=== PATIENT | female | born 1985 | race Hispanic/Latino ===

== ENCOUNTER 2021-08-16 13:57 | Emergency (ER) | payer BC ==
[2021-08-16] MEDS ORDERED: ONDANSETRON 4 MG/2 ML VIAL ONE (14:54)
[2021-08-16] MEDS ORDERED: KETOROLAC 30 MG/ML INJ ONE (14:54)
[2021-08-16 15:24] LABS: Absolute Lymphocytes (CBC) 2.2 K/uL (0.7-4.9); Hematocrit 43.9 % (36.0-45.0); Lymphocytes % 30.6 % (15.3-44.8); MPV 8.7 fL (7.6-11.3); RBC Red Blood Cell Count 5.01 M/uL (3.86-4.86)
[2021-08-16 15:31] LABS: Urine Blood 3+ (Negative); Urine Glucose Negative (Negative); Urine Protein 3+ (Negative); Urine Specific Gravity >=1.030 (1.005-1.030)
[2021-08-16] MEDS ORDERED: MORPHINE 4 MG/ML SYR ONE (15:37)
[2021-08-16 15:41] LABS: ALT/SGPT 44 U/L (12-78); AST/SGOT 25 U/L (15-37); Albumin 4.1 g/dL (3.4-5.0); Alkaline Phosphatase 99 U/L (45-117); BUN Blood Urea Nitrogen 16 mg/dL (7-18); Bicarbonate 23 mmol/L (21-32); Bilirubin Direct < 0.1 mg/dL (0-0.2); Bilirubin Total 0.3 mg/dL (0.2-1.0); Glucose Level 135 mg/dL (74-106); Lipase 95 U/L (73-393); Potassium 3.8 mmol/L (3.5-5.1); Protein, Total 8.7 g/dL (6.4-8.2); Sodium Level 140 mmol/L (136-145)
[2021-08-16 15:54] LABS: Urine Specific Gravity/Preg >1.030 (1.005-1.030)
--- NOTE | 2021-08-16 16:07 | RAD REPORT ---
EXAM DESCRIPTION: CT - Stone Protocol - 08/16/2021 3:49 pm CLINICAL HISTORY: Flank pain. history of stones;Abd pain COMPARISON: No comparisons TECHNIQUE: Axial images were obtained without oral or IV contrast. Lack of contrast limits solid org an and vascular assessment. The [id number]-[id number] spans the entirety of the system partially obscuring uppermost abdomen and lung bases. Coronal reformatted images were obtained and reviewed. All CT scans are performed using dose optimization technique as appropriate and may include automated exposure control or mA/KV adjustment according to patient size. FINDINGS: The lower lung haas are clear. Imaged portions of the liver and spleen show no suspicious findings on non-contrast imaging. The panc reas and adrenal glands are normal. No pathologic lymphadenopathy in the abdomen or pelvis. Small caliceal stones are present in both kidneys without hydronephrosis, largest on the right measur ing 5 mm. No bowel obstruction, free air, free fluid or abscess. Normal appendix noted.A pelvic mass is present measuring 7.3 x 6.1 cm it is unclear if this mass emanates from the uterus or left ovary. No significant bony abnormality. IMPRESSION: Small stones in both kidneys without hydronephrosis. 7 cm pelvic mass is noted. Recommend pelvic ultrasound followup.
[2021-08-16] MEDS ORDERED: HYDROMORPHONE HCL 1 MG/ML INJ ONE (16:49)
--- NOTE | 2021-08-16 17:04 | RAD REPORT ---
EXAM DESCRIPTION: US - Transvaginal Study Probe - 08/16/2021 4:50 pm CLINICAL HISTORY: r/o torsion;Abd pain Pelvic pain. COMPARISON: No comparisons FINDINGS: The uterus is normal in size, shape and echotexture. The uterus measures 9.9 x 6.1 x 4.1 c m. The endometrial stripe measures 12 mm, normal. The right ovary measures 3.1 x 1.9 cm. The left ovary appears enlarged and appears to contain the omer id and cystic mass. The size of the mass is approximately 6.2 x 5.9 cm. Normal Doppler blood flow was demonstrated to both ovaries. No significant pelvic ascites. IMPRESSION: A solid and cystic mass lesion measuring 6.2 x 5.9 cm suspected involving the left ovary .An ovarian neoplasm is possible. Recommend nonemergent MRI female pelvis protocol. No ovarian torsion seen.
--- NOTE | 2021-08-16 17:45 | ER ---
Nurse's Notes [facility] Name: Elza Rogers Age: 36 yrs Sex: Female : 1985 Arrival Date: 08/16/2021 Time: 14:05 Bed 18 Private MD: Diagnosis: Left lower quadrant abdominal swelling, mass and lump;Lower abdominal pain, unspecified-intractable Presentation: 08/16 14:15 Chief complaint: Patient states: Abdominal pain 10 of 10, left lower Quadrant x 3 weeks sl2 - pain worst in severity today thus presented to ED. Denies fever, nausea or vomiting, report history of ovarian cysts. Currently menstruating. 14:15 Coronavirus screen: Vaccine status: Patient reports receiving the 2nd dose of the covid sl2 vaccine. Ebola Screen: Patient negative for fever greater than or equal to 101.5 degrees Fahrenheit, and additional compatible Ebola Virus Disease symptoms Patient denies exposure to infectious person. Patient denies travel to an Ebola-affected area in the 21 days before illness onset. No symptoms or risks identified at this time. Initial Sepsis Screen: Does the patient meet any 2 criteria? No. Patient's initial sepsis screen is negative. Does the patient have a suspected source of infection? No. Patient's initial sepsis screen is negative. Risk Assessment: Do you want to hurt yourself or someone else? Patient reports no desire to harm self or others. Onset of symptoms. 14:15 Method Of Arrival: Ambulatory sl2 14:15 Acuity: PATRICA 2 sl2 Triage Assessment: 14:46 General: Appears uncomfortable, well groomed, well developed, Behavior is calm, sl2 cooperative, appropriate for age, quiet, Reports Severe LLQ abdominal pain. Pain: Complains of pain in abdomen. Left lower quadrant Pain does not radiate. Pain currently is 10 out of 10 on a pain scale. at worst was 10 out of 10 on a pain scale. level that patient reports is acceptable is 2 out of 10 on a pain scale. Quality of pain is described as aching, sharp, Pain began 3 weeks ago Is continuous, Alleviated by nothing. Aggravated by increased activity, Noted to be grimacing, quiet/stoic, resistant to movement. EENT: No deficits noted. No signs and/or symptoms were reported regarding the EENT system. Neuro: Level of Consciousness is awake, alert, obeys commands, Oriented to person, place, time, situation, Appropriate for age Bronc Buster are equal bilaterally Moves all extremities. Full function Gait is steady, Speech is normal, Facial symmetry appears normal. Neuro: No deficits noted. Cardiovascular: No deficits noted. Respiratory: No deficits noted. Reports Airway is patent Trachea midline Respiratory effort is even, unlabored, Respiratory pattern is regular, symmetrical, Breath sounds are clear bilaterally. GI: Reports lower abdominal pain, Patient currently denies diarrhea. : No deficits noted. No signs and/or symptoms were reported regarding the genitourinary system. Derm: No deficits noted. No signs and/or symptoms reported regarding the dermatologic system. Musculoskeletal: No deficits noted. No signs and/or symptoms reported regarding the musculoskeletal system. CYCLE COUNTER: 14:46 LMP 08/16/2021 sl2 Historical: - Allergies: 14:46 No Known Allergies; sl2 - Immunization history:: Adult Immunizations up to date, Client reports receiving the 2nd dose of the Covid vaccine. - Social history:: Smoking status: Patient denies any tobacco usage or history of. Screenin:55 Abuse screen: Denies threats or abuse. Nutritional screening: No deficits noted. ss Tuberculosis screening: No symptoms or risk factors identified. Fall Risk None identified. No fall in past 12 months (0 pts). No secondary diagnosis (0 pts). IV access (20 points). Ambulatory Aid- None/Bed Rest/Nurse Assist (0 pts). Gait- Normal/Bed Rest/Wheelchair (0 pts) Mental Status- Oriented to own ability (0 pts). Total Carl Fall Scale indicates No Risk (0-24 pts). Assessment: 14:55 General: Appears uncomfortable, obese, well groomed, well developed, Behavior is ss cooperative, appropriate for age. 14:55 Pain: Complains of pain in Left Lower Quadrant - Abdomen Pain does not radiate. Pain ss currently is 10 out of 10 on a pain scale. at worst was 10 out of 10 on a pain scale. level that patient reports is acceptable is 2 out of 10 on a pain scale. Quality of pain is described as aching, crampy, sharp, shooting, Pain began 3 weeks ago Is continuous, Alleviated by nothing. Aggravated by increased activity, repositioning, Noted to be grimacing, resistant to movement. Neuro: No deficits noted. Level of Consciousness is awake, alert, obeys commands, Oriented to person, place, time, situation, Appropriate for age Bronc Buster are equal bilaterally Moves all extremities. Full function Gait is steady, Speech is normal, Facial symmetry appears normal. Cardiovascular: No deficits noted. Reports. Respiratory: No deficits noted. Airway is patent Trachea midline Respiratory effort is even, unlabored, Respiratory pattern is regular, symmetrical, Breath sounds are clear bilaterally. GI: Bowel sounds present X 4 quads. Abd is soft and non tender X 4 quads. : No deficits noted. EENT: No deficits noted. Derm: No deficits noted. Musculoskeletal: No deficits noted. 18:10 Pain: Pain currently is 6 out of 10 on a pain scale. sl2 19:37 Reassessment: Patient appears in no apparent distress at this time. Resting in bed sl2 talking on cell phone; reports left lower abdominal pain decreased to 2/10 on pain scale; # 20 g saline lock intact right AC with no s/sx's of infiltration/infection noted of site; afebrile. Patient states feeling better. General: Appears in no apparent distress. Behavior is calm, cooperative. Neuro: No deficits noted. Level of Consciousness is awake, alert, obeys commands, Oriented to person, place, time, situation. Respiratory: No deficits noted. Airway is patent. GI: Reports lower abdominal pain, decreasing. 20:30 Reassessment: Report telephoned to Lizzy Hand RN of [facility]; pt cc4 informed of transfer via ground ambulance to [facility] with v/u \T\ signing consent. Patient states feeling better. 21:00 Reassessment: Patient appears in no apparent distress at this time. [facility] cc4 here with report given \T\ transported to [facility] via stretcher per ground ambulance. Patient states feeling better. Vital Signs: 14:15 BP 110 / 69; Pulse 82; Resp 22; Temp 98.4; Pulse Ox 99% on R/A; Weight 97.52 kg; Height sl2 5 ft. 6 in. (167.64 cm); 15:30 BP 135 / 78; Pulse 85; Resp 18; Temp 98.6; Pulse Ox 100% on R/A; ss 16:00 BP 134 / 84; Pulse 86; Resp 18; Pulse Ox 100% on R/A; sl2 17:00 BP 142 / 86; Pulse 85; Resp 18; Temp 98.4; Pulse Ox 97% on R/A; sl2 17:30 BP 143 / 90; Pulse 75; Resp 18; Temp 98.4; Pulse Ox 99% on R/A; sl2 18:00 BP 138 / 85; Pulse 80; Resp 18; Temp 98.2; Pulse Ox 99% on R/A; sl2 19:00 BP 133 / 85; Pulse 88; Resp 18; Temp 98.4; Pulse Ox 100% ; sl2 19:37 BP 145 / 94; Pulse 78; Resp 20; Temp 98.1; Pulse Ox 100% on R/A; sl2 20:30 BP 131 / 92; Pulse 73; Resp 20; Temp 98.1(O); Pulse Ox 99.0% on R/A; cc4 14:15 Body Mass Index 34.70 (97.52 kg, 167.64 cm) sl2 ED Course: 14:05 Patient arrived in ED. mr 14:15 Ken Palomino PA is PHCP. jr8 14:15 Elias Richards MD is Attending Physician. jr8 14:15 Rosamaria Echavarria MD is Attending Physician. jr8 14:20 Inserted saline lock: 20 gauge in right antecubital area, using aseptic technique. ss 14:41 Marianela Bro, RN is Primary Nurse. sl2 14:46 Triage completed. sl2 14:46 Arm band placed on left wrist. sl2 14:55 Patient has correct armband on for positive identification. Placed in gown. Bed in low ss position. Call light in reach. Side rails up X2. 14:55 No provider procedures requiring assistance completed. ss 15:[address] via wheelchair. ss 15:48 CT Stone Protocol In Process Unspecified. EDMS 15:[address] Patient moved back from [address]. ss 16:50 US Transvaginal Study (Probe) In Process Unspecified. EDMS 17:22 PHCP role handed off by Ken Palomino PA jr8 17:22 Travon Parra PA is PHCP. jr8 17:[address] Arlene Pop. [phone]. bd 18:30 initiated transfer to [facility]. bd 20:03 Updated Basil at [facility] with pt xu resutls. tt3 20:14 Dani Serna with [facility] gave admin approval. The pt is going to [address] to room 2636. The accepting physician is Dr. Eldridge. Nurse to call report to . Face sheet, covid result, and MOT to be faxed to per Dani's request. 21:00 Patient transferred, IV remains in place. cc4 Administered Medications: 14:57 Drug: Ketorolac 15 mg Route: IVP; Site: right antecubital; sl2 15:30 Follow up: Response: No adverse reaction; No change in condition ss 15:00 Drug: Zofran (Ondansetron) 4 mg Route: IVP; Site: right antecubital; sl2 15:30 Follow up: Response: No adverse reaction; No change in condition ss 16:58 Follow up: Response: No adverse reaction sl2 15:44 Drug: morphine 4 mg Route: IVP; Site: right antecubital; ss 16:10 Follow up: Response: No adverse reaction; Pain is decreased sl2 16:55 Drug: Dilaudid (HYDROmorphone) 1 mg Route: IVP; Site: right antecubital; sl2 18:08 Follow up: Response: No adverse reaction; Pain is decreased sl2 Outcome: 17:44 ER care complete, transfer ordered by . cp 21:00 Transferred by ground EMS [facility] Transfer form completed. cc4 21:00 Condition: stable 21:00 Instructed on the need for transfer, Demonstrated understanding of instructions, follow-up care. 21:07 Patient left the ED. cc4 Signatures: Dispatcher [employer] EDMS Karly Nieto Dean, Anne mr Harika Cristina, LOYD RN Ken Palomino PA PA jr8 Travon Parra PA PA cp Trim, Tyler tt3 India Patel RN RN cc4 Marianela Bro RN RN sl2 Corrections: (The following items were deleted from the chart) 15:53 15:52 Patient moved back from [facility]. ss ss
--- NOTE | 2021-08-16 17:45 | EDPHYS ---
Physician Documentation [facility] Name: Elza Rogers Age: 36 yrs Sex: Female : 1985 Arrival Date: 08/16/2021 Time: 14:05 Bed 18 Private MD: ED Physician Rosamaria Echavarria HPI: 08/16 16:00 This 36 yrs old Female presents to ER via Ambulatory with complaints of jr8 Abdominal Pain. 16:00 This is a 36-year-old female who presented to the emergency room with left lower cp quadrant abdominal. Patient recently had delivery about 3 weeks ago. Started to have her menstrual cycle a couple days ago and is now having intense left lower quadrant pain. Patient stated that she has a history of ovarian cysts and during the section her OB stated that there were more cysts on her ovaries than they saw the last time. Patient also has a history of rupture of cysts in the past also. Concerned that it may have happened again. Denies any nausea, vomiting, diarrhea, fevers. TOOL [employer] LEVEL FIVE: 14:46 LMP 08/16/2021 sl2 Historical: - Allergies: 14:46 No Known Allergies; sl2 - Immunization history:: Adult Immunizations up to date, Client reports receiving the 2nd dose of the Covid vaccine. - Social history:: Smoking status: Patient denies any tobacco usage or history of. ROS: 16:00 Eyes: Negative for injury, pain, redness, and discharge, ENT: Negative for injury, jr8 pain, and discharge, Neck: Negative for injury, pain, and swelling, Cardiovascular: Negative for chest pain, palpitations, and edema, Respiratory: Negative for shortness of breath, cough, wheezing, and pleuritic chest pain, Back: Negative for injury and pain, MS/Extremity: Negative for injury and deformity, Skin: Negative for injury, rash, and discoloration, Neuro: Negative for headache, weakness, numbness, tingling, and seizure. 16:00 Abdomen/GI: Positive for abdominal pain, Negative for nausea, vomiting, and diarrhea. Exam: 16:00 Cardiovascular: Regular rate and rhythm with a normal S1 and S2. No gallops, murmurs, jr8 or rubs. Normal PMI, no JVD. No pulse deficits. Respiratory: Lungs have equal breath sounds bilaterally, clear to auscultation and percussion. No rales, rhonchi or wheezes noted. No increased work of breathing, no retractions or nasal flaring. Back: No spinal tenderness. No costovertebral tenderness. Full range of motion. Skin: Warm, dry with normal turgor. Normal color with no rashes, no lesions, and no evidence of cellulitis. MS/ Extremity: Pulses equal, no cyanosis. Neurovascular intact. Full, normal range of motion. Neuro: Awake and alert, GCS 15, oriented to person, place, time, and situation. Cranial nerves II-XII grossly intact. Motor strength 5/5 in all extremities. Sensory grossly intact. 16:00 Constitutional: The patient appears alert, awake, in obvious pain, uncomfortable. 16:00 Abdomen/GI: Inspection: abdomen appears normal, Bowel sounds: active, all quadrants, Palpation: soft, in all quadrants, moderate abdominal tenderness, in the left lower quadrant, mass, is not appreciated, rebound tenderness, is elicited in all quadrants, voluntary guarding, is elicited in the left lower quadrant, involuntary guarding, is not appreciated, no appreciated organomegaly, Indicators: McBurney's point is not tender, Heredia's sign is negative, Rovsing's sign is negative, Liver: tenderness, is not appreciated. Vital Signs: 14:15 BP 110 / 69; Pulse 82; Resp 22; Temp 98.4; Pulse Ox 99% on R/A; Weight 97.52 kg; Height sl2 5 ft. 6 in. (167.64 cm); 15:30 BP 135 / 78; Pulse 85; Resp 18; Temp 98.6; Pulse Ox 100% on R/A; ss 16:00 BP 134 / 84; Pulse 86; Resp 18; Pulse Ox 100% on R/A; sl2 17:00 BP 142 / 86; Pulse 85; Resp 18; Temp 98.4; Pulse Ox 97% on R/A; sl2 17:30 BP 143 / 90; Pulse 75; Resp 18; Temp 98.4; Pulse Ox 99% on R/A; sl2 18:00 BP 138 / 85; Pulse 80; Resp 18; Temp 98.2; Pulse Ox 99% on R/A; sl2 19:00 BP 133 / 85; Pulse 88; Resp 18; Temp 98.4; Pulse Ox 100% ; sl2 19:37 BP 145 / 94; Pulse 78; Resp 20; Temp 98.1; Pulse Ox 100% on R/A; sl2 20:30 BP 131 / 92; Pulse 73; Resp 20; Temp 98.1(O); Pulse Ox 99.0% on R/A; cc4 14:15 Body Mass Index 34.70 (97.52 kg, 167.64 cm) sl2 MDM: 14:19 Patient medically screened. jr8 15:00 Differential diagnosis: Ovarian Torsion, Pelvic Inflammatory Disease, Pyelonephritis, cp Ureterolithiasis, urinary tract infection, abdominal mass, ovarian cyst. 17:21 Data reviewed: vital signs, nurses notes, lab test result(s), radiologic studies, CT jr8 scan, ultrasound. Data interpreted: Pulse oximetry: on room air is 97 %. Interpretation: normal. Counseling: I had a detailed discussion with the patient and/or guardian regarding: the historical points, exam findings, and any diagnostic results supporting the discharge/admit diagnosis, lab results, radiology results. Transition of care: After a detail discussion of the patient's case, care is transferred to Travon PEARCE. ED course: Patient has large cystic mass left side. Cannot rule out neoplasm. Needs nonemergent MRI but patient continues to have moderate to severe pain despite 3 rounds of medication. Attempting to call her OB at [facility] in [facility] to see if we can transfer for further evaluation and continuity of care.. 18:20 Physician consultation: was contacted at 18:18, regarding regarding transfer, [facility] patient's condition, accepting physician will be DR Arlene Pop after phone consultation. 08/16 14:51 Order name: Basic Metabolic Panel; Complete Time: 15:52 jr8 08/16 18:52 Interpretation: Normal except: CL 109; GLUC 135; GFR 83. cp 08/16 14:51 Order name: CBC with Diff; Complete Time: 15:52 jr8 08/16 18:52 Interpretation: Normal except: RBC 5.01. cp 08/16 14:51 Order name: Hepatic Function; Complete Time: 15:52 jr8 08/16 18:53 Interpretation: Normal except: TP 8.7; GLOB 4.6; A/G 0.9. cp 08/16 14:51 Order name: Lipase; Complete Time: 15:52 jr8 08/16 15:32 Order name: Urine Dipstick-Ancillary [facility] 08/16 15:36 Order name: Urine --Ancillary (enter results) 08/16 14:51 Order name: CT Stone Protocol; Complete Time: 16:13 [facility] 08/16 15:36 Order name: Urine --Ancillary; Complete Time: 15:55 [facility] 08/16 15:55 Order name: US Transvaginal Study (Probe); Complete Time: 17:09 [facility] 08/16 18:16 Order name: COVID-19 SARS RT PCR (Document "Date of Onset" if Symptomatic) 08/16 14:51 Order name: IV Saline Lock; Complete Time: 15:23 [facility] 08/16 14:51 Order name: Labs collected and sent; Complete Time: 15:23 [facility] 08/16 14:51 Order name: Urine Dipstick-Ancillary (obtain specimen); Complete Time: 15:45 jr Administered Medications: 14:57 Drug: Ketorolac 15 mg Route: IVP; Site: right antecubital; sl2 15:30 Follow up: Response: No adverse reaction; No change in condition ss 15:00 Drug: Zofran (Ondansetron) 4 mg Route: IVP; Site: right antecubital; sl2 15:30 Follow up: Response: No adverse reaction; No change in condition ss 16:58 Follow up: Response: No adverse reaction sl2 15:44 Drug: morphine 4 mg Route: IVP; Site: right antecubital; ss 16:10 Follow up: Response: No adverse reaction; Pain is decreased sl2 16:55 Drug: Dilaudid (HYDROmorphone) 1 mg Route: IVP; Site: right antecubital; sl2 18:08 Follow up: Response: No adverse reaction; Pain is decreased sl2 Disposition Summary: 08/16/21 17:44 Transfer Ordered Transfer Location: Other Acute Care Facility cp Reason: Higher level of care cp Condition: Stable cp Problem: new cp Symptoms: have improved cp Accepting Physician: DR Arlene Pop(08/16/21 21:07) cc4 Diagnosis - Left lower quadrant abdominal swelling, mass and lump cp - Lower abdominal pain, unspecified - intractable cp Forms: - Medication Reconciliation Form cp - SBAR form cp Addendum: 08/21/2021 05:30 Co-signature as Attending Physician, Rosamaria Echavarria MD PA/[facility]'s history reviewed, m a2 patient interviewed, and examined. I agree with assessment and care plan and confirm the diagnosis (es) above. Signatures: Dispatcher [employer] Harika Hamilton RN RN ss Ken Palomino PA PA jr8 Travon Parra PA PA cp Alzahri, Mohammad, MD MD ma2 India Patel RN RN cc4 Marianela Bro RN RN sl2 Corrections: (The following items were deleted from the chart) 08/16 18:19 17:44 Doctor sarbjit cp 21:07 18:19 DR Arlene Pop cp cc4 08/17 17:32 08/16 16:00 This is a 36-year-old female who presented to the emergency room with left cp lower quadrant abdominal. Patient recently had delivery about 3 weeks ago. Started to have her menstrual cycle a couple days ago and is now having intense left lower quadrant pain. Patient stated that she has a history of ovarian cysts and during the section her OB stated that there were more cysts on her ovaries than they saw the last time. Patient also has a history of rupture of cysts in the past also. Concerned that it may have happened again. Denies any nausea, vomiting, diarrhea, fevers.. jr8
[2021-08-16 22:38] VITALS: O2SAT 100
[2021-08-16 22:39] VITALS: TEMP 98.1
[2021-08-16 22:41] VITALS: BP 131/92
--- OUTSIDE RECORDS SUMMARY | 2021-08-19 19:37 | XMS REPORT | Continuity of Care Document ---
:1985 Author Organization [facility] t Address [address] [place] [address] Care Team Providers Name Role Phone Mohini Sandee WALSH Primary Care Physician Mohini Attending Clinician Unavailable Jana Eldridge Attending Clinician Unavailable Krzysztof Attending Clinician Unavailable Andrés SO Attending Clinician Unavailable Kareem SO Attending Clinician Unavailable Anupam Drummond MD Attending Clinician Mohini Admitting Clinician Unavailable Jana Eldridge Admitting Clinician Unavailable Payers Payer Name Policy Type Policy Number Effective Date Expiration Date S jacob [place] [id number] 2017 00:00:00 [place] Problems Condition Condition Condition Status Onset Resolution Last Treating Co mments Source Name Details Category Date Date Treatment Clinician Date Ureteral Ureteral Disease Active Overview: Me thodi stone stone 05-[address] 00:00: g of this [facility]osp[facility] 00 note l might be different from the original. Added automatic ally from request for surgery [id number] Kidney Kidney Disease Active Overview: Method i stones stones [address] 00:00: g of this [facility]osp[facility] 00 note l might be different from the original. Added automatic ally from request for surgery [id number] Type 2 Type 2 Problem Active 2016-10 [facility] diabetes Diabetes 2-29 da mellitus Mellitus 00:00: Medica l 00 Group Onychomyco Onychomyco Problem Active M [facility] sis sis [facility] Obesity Obesity Problem Active [facility] Acute Acute Problem Active [facility] otitis Otitis da media Media [facility] Essential Essential Problem Active [facility] hypertensi Hypertensi da on on Medical Group Acute Acute Problem Active [facility] pharyngiti Pharyngiti da s s Medical Group Upper Upper Problem Active [facility] respirator Respirator da y y Medical infection Infection Grou p Gastroesop Gastroesop Problem Active M [facility] hageal hageal da reflux Reflux Medical disease Disease Group 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 Medica l Group 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[facility] fasciitis Fasciitis da Medical Group Pain in Pain in Problem Active [facility] upper limb [facility] Vertigo Vertigo Problem Active [facility] Cough Cough Problem Active [facility] Epigastric Epigastric Problem Active [facility] pain Pain da [facility] Impaired Impaired Problem Active [facility] glucose Glucose da tolerance Tolerance Medi gonzalez Group Bee sting Bee Sting Problem Active [facility] Allergies, Adverse Reactions, Alerts Allergy Allergy Status Severity Reaction(s) Onset Inactive Treating Comm ents Source Name Type Date Date Clinician No Known DA Active U [facility] 00 [facility] No Known DA Active U [facility]ie 9-03 [facility] 00:[facility]: [facility]ospita 00 [facility] No Known DA Active U [facility]ie [facility]- [place] 00:00: [address] No Known DA Active U [facility]ie [facility]- [place] s 00:00: [address] Codeine Propensi Active GI Methodi ty to Intolerance 05-25 st adverse 00:00: Hospita reaction 00 l s to drug No Known DA Active U [facility] Allergie 2-10 [facility] 00:[facility]: Hospita [address] [place] [address] No Known DA Active U [facility] Allergie 2-10 [facility] 00:[facility]: Hospita 00 [facility] Family History Family Member Diagnosis Comments Start Date Stop Date Source Natural father Hypertension [facility] Natural father Nephrolithiasis [facility] Natural mother Diabetes [facility] Natural mother Hypertension [facility] Social History Social Habit Start Date Stop Date Quantity Comments Source History SDOH [facility] Alcohol Std Drinks Hospit al History SDMT [facility] Tobacco use and 2020-07-06 2020-07-06 Never used [facility] exposure 00:00:00 00:00:00 Hospital Alcohol intake 2020-07-06 2020-07-06 Lifetime [facility] 00:00:00 00:00:00 non-drinker Hospital (finding) History SDOH 2020-06-03 2020-06-03 1 [facility] Alcohol Frequency 00:00:00 00:00:00 Hospita l Sex Assigned At [birth year] [facility] 00:00:00 00:00:00 Hospital Smoking Status Start Date Stop Date Source Never smoker [facility] Medications Ordered Filled Start Stop Current Ordering Indication Dosage Frequency Signature Comments Components Source Medication Medication Date Date Medication? Clinician (SIG) Name Name levonorgest 2020-0 Yes 1{tbl} QD Take 1 Me thodi rel/ethin.e 8- tablet by st stradiol 16:17: mouth Hospita (VIENVA 08 daily. l ORAL) metFORMIN 2020-0 Yes 1000mg Q.5D Take 1,000 [facility] (GLUCOPHAGE 8-[address] ) 500 mg 16:17: mouth 2 Hospit a tablet 08 (two) l times a day with meals. scopolamine 2020-0 Yes 1{patch Q72H Place 1 [facility] (Transderm- 8 } patch on st Scop) 1 mg 16:17: the skin Hos yunior over 3 days 08 every l third day. PRN phenazopyri 2020-0 Yes 100mg Q.[id number] Take 1 [facility] dine 8-[id number] (Pyridium) 00:00: 3D (100 mg Hosp [facility] 100 MG 00 total) by l tablet mouth 3 (three) times a day as needed for bladder spasms. oxybutynin 2020-0 Yes 5mg Q.[id number] Take 1 [facility] (DITROPAN) 8- [id number] tablet (5 st 5 MG tablet 00:00: 3D mg total) H ospita 00 by mouth 3 l (three) times a day as needed for bladder spasms. tamsulosin 2020-0 Yes .4mg QD Take 1 Metho di (FLOMAX) 8-[address] 0.4 mg 00:00: (0.4 mg Hospita capsule 00 total) by l mouth daily with dinner. NIFEdipine 2020-0 Yes TAKE 1 Metho di XL 6-[address] (PROCARDIA 00:00: MOUTH Hospit a XL) 30 MG 00 EVERY DAY l 24 hr tablet Humulin N Humulin N No Humulin N [facility] NPH U-100 NPH U-100 NPH U-100 da Insulin Insulin Insulin Medica l KwikPen 100 KwikPen 100 KwikPen Group unit/mL (3 unit/mL (3 100 mL) mL) unit/mL (3 subcutaneou subcutaneou mL) s INJECT s INJECT subcutaneo UNDER THE UNDER THE us INJECT SKIN 31 SKIN 31 UNDER THE UNITS EVERY UNITS EVERY SKIN 31 MORNING AND MORNING AND UNITS 12 UNITS 12 UNITS EVERY EVERY NIGHT EVERY NIGHT MORNING AT BEDTIME AT BEDTIME AND 12 DIRECTED DIRECTED UNITS EVERY NIGHT AT BEDTIME DIRECTED metformin metformin No metformin [facility] ER 500 mg ER 500 mg ER 500 mg da tablet,exte tablet,exte tablet,ext Medical nded nded ended Group release 24 release 24 release 24 hr TAKE 4 hr TAKE 4 hr TAKE 4 TABLETS BY TABLETS BY TABLETS BY MOUTH EVERY MOUTH EVERY MOUTH DAY DAY EVERY DAY nifedipine nifedipine No nifedipine [facility] ER 30 mg ER 30 mg ER 30 mg da tablet,exte tablet,exte tablet,ext Medical nded nded ended Group release 24 release 24 release 24 hr TAKE 1 hr TAKE 1 hr TAKE 1 TABLET BY TABLET BY TABLET BY MOUTH TWICE MOUTH TWICE MOUTH DAILY DAILY TWICE DAILY No [facility] Vienva 0.1 Vienva 0.1 No Vienva 0.1 [facility] mg-20 mcg mg-20 mcg mg-20 mcg da tablet TK 1 tablet TK 1 tablet TK Medical T PO QD T PO QD 1 T PO QD Grou p Immunizations Ordered Immunization Filled Immunization Date Status Commen ts Source Name Name COVID-19, mRNA, COVID-19, mRNA, 2020-12-08 Completed Boyle víctor LNP-S, PF, 100 LNP-S, PF, 100 00:00:00 Medica l Group mcg/0.5 mL dose mcg/0.5 mL dose influenza, influenza, 2019-07-17 Completed [facility] injectable, injectable, 00:00:00 Medical Grou p quadrivalent quadrivalent MMR MMR 2015-12-19 Completed [facility] 00:00:00 Medical Group influenza, seasonal, influenza, 2014-06-30 Completed Boyle víctor injectable seasonal, 12:27:48 Medical Group injectable Vital Signs Vital Name Observation Time Observation Value Comments Source BP Diastolic 2021-01-26 00:00:00 80 mm[Hg] [facility] Height 2021-01-26 00:00:00 68 [in_i] [facility] BMI (Body Mass 2021-01-26 00:00:00 33.1 kg/m2 [facility] Medical Index) Group BP Systolic 2021-01-26 00:00:00 119 mm[Hg] [facility] Body Weight 2021-01-26 00:00:00 3488 [oz_av] [facility] BP Diastolic 2020-12-19 00:00:00 90 mm[Hg] [facility] Height 2020-12-19 00:00:00 68 [in_i] [facility] BMI (Body Mass 2020-12-19 00:00:00 33 kg/m2 [facility] Medical Index) Group BP Systolic 2020-12-19 00:00:00 138 mm[Hg] [facility] Body Weight 2020-12-19 00:00:00 3472 [oz_av] [facility] BP Diastolic 2020-06-20 00:00:00 92 mm[Hg] [facility] Height 2020-06-20 00:00:00 68 [in_i] [facility] BMI (Body Mass 2020-06-20 00:00:00 32.5 kg/m2 [facility] Medical Index) Group BP Systolic 2020-06-20 00:00:00 137 mm[Hg] [facility] Body Weight 2020-06-20 00:00:00 3424 [oz_av] [facility] BP Diastolic 2020-05-20 00:00:00 86 mm[Hg] [facility] Height 2020-05-20 00:00:00 68 [in_i] [facility] BMI (Body Mass 2020-05-20 00:00:00 33.4 kg/m2 [facility] Index) Group BP Systolic 2020-05-20 00:00:00 131 mm[Hg] [facility] Body Weight 2020-05-20 00:00:00 3515.2 [oz_av] [facility] BP Diastolic 2020-05-13 00:00:00 87 mm[Hg] [facility] Height 2020-05-13 00:00:00 68 [in_i] [facility] BMI (Body Mass 2020-05-13 00:00:00 33.4 kg/m2 [facility]) Group BP Systolic 2020-05-13 00:00:00 127 mm[Hg] [facility] Body Weight 2020-05-13 00:00:00 3512 [oz_av] [facility] BP Diastolic 2020-05-06 00:00:00 94 mm[Hg] [facility] Height 2020-05-06 00:00:00 68 [in_i] [facility] BMI (Body Mass 2020-05-06 00:00:00 33.5 kg/m2 [facility]) Group BP Systolic 2020-05-06 00:00:00 147 mm[Hg] [facility] Body Weight 2020-05-06 00:00:00 3520 [oz_av] [facility] BP Diastolic 2019-11-19 00:00:00 96 mm[Hg] [facility] Height 2019-11-19 00:00:00 68 [in_i] [facility] BMI (Body Mass 2019-11-19 00:00:00 33.8 kg/m2 [facility]) Group BP Systolic 2019-11-19 00:00:00 126 mm[Hg] [facility] Body Weight 2019-11-19 00:00:00 3552 [oz_av] [facility] BP Diastolic 2019-09-09 00:00:00 104 mm[Hg] [facility] Height 2019-09-09 00:00:00 68 [in_i] [facility] BMI (Body Mass 2019-09-09 00:00:00 33.5 kg/m2 [facility]) Group BP Systolic 2019-09-09 00:00:00 131 mm[Hg] [facility] Body Weight 2019-09-09 00:00:00 3520 [oz_av] [facility] BP Diastolic 2019-01-26 00:00:00 90 mm[Hg] [facility] Height 2019-01-26 00:00:00 68 [in_i] [facility] BMI (Body Mass 2019-01-26 00:00:00 34.3 kg/m2 [facility] Medical Index) Group BP Systolic 2019-01-26 00:00:00 137 mm[Hg] [facility] Body Weight 2019-01-26 00:00:00 3606.4 [oz_av] [facility] BP Diastolic 2018-10-21 00:00:00 94 mm[Hg] [facility] Height 2018-10-21 00:00:00 68 [in_i] [facility] BMI (Body Mass 2018-10-21 00:00:00 34.7 kg/m2 [facility] Medical Index) Group BP Systolic 2018-10-21 00:00:00 129 mm[Hg] [facility] Body Weight 2018-10-21 00:00:00 3648 [oz_av] [facility] BP Diastolic 2018-10-15 00:00:00 68 mm[Hg] [facility] Height 2018-10-15 00:00:00 68 [in_i] [facility] BMI (Body Mass 2018-10-15 00:00:00 35.2 kg/m2 [facility] BP Systolic 2018-10-15 00:00:00 131 mm[Hg] [facility] Body Weight 2018-10-15 00:00:00 3705 [oz_av] [facility] Procedures Procedure Date / Time Performed Performing Clinician Gunner uribe [id number] 2021-06-09 00:00:[address] [place] [address]'[facility] LITHOLINK STONE RISK 2020-08-02 00:00[facility] FACTORS, AND NORMALIZED VALUES POC URINALYSIS DIPSTICK 2020-07-06 16:31:00 Yolanda Drummond [facility] XR, kidney + ureter + 2020-05-20 00:00:00 [facility] XR, kidney + ureter + 2020-05-13 00:00:00 [facility] CT, abdomen + pelvis, 2020-05-06 00:00:00 [facility] Medical w/o contrast Group Caesarean Section 2016-11-17 00:00:00 [facility] Colonoscopy 2013-10-07 00:00:00 [facility] Plan of Care Planned Activity Planned Date Details Comments Source Future Scheduled Test DIABETES: RETINAL EYE [facility] EXAM [code = DIABETES: RETINAL EYE EXAM] Future Scheduled Test DIABETIC FOOT EXAM [facility] [code = DIABETIC FOOT EXAM] Future Scheduled Test URINE MICROALBUMIN [facility] [code = URINE MICROALBUMIN] Future Scheduled Test COVID-19 VACCINE (1) [facility] [code = COVID-19 VACCINE (1)] Future Scheduled Test Hepatitis C screening [facility] (procedure) [code = 663261660] Future Scheduled Test Screening for [facility] malignant neoplasm of cervix (procedure) [code = 409607636] Future Scheduled Test INFLUENZA VACCINE [facility] [code = INFLUENZA VACCINE] Instructions [facility] Encounters Start End Encounter Admission Attending Care Care Encounter Source Date/Time Date/Time Type Type Clinicians Facility Department ID 2021-08-19 [facility] 14:54:10 [facility] 2021-08-18 [facility] 23:43:10 031 [facility] 2021-08-18 [facility] 23:30:00 0318 [facility] 2021-08-18 [facility] 23:20:09 0317 [facility] 2021-08-18 [facility] 22:52:13 0315 [facility] 2021-06-07 Inpatient KAYY Eldridge [facility] [id number] [facility] 10:00:00 Arlene [id number] [facility] 2021-08-16 2021-08-17 Inpatient EM KAYY Eldridge [facility]. [id number] [facility] 22:48:00 15:55:00 Arlene [id number] [facility] 2021-08-16 2021-08-16 Inpatient EM DARINEL Eldridge MEDI.01 [id number] [facility] 22:48:00 22:48:00 Arlene 06 [facility] 2021-06-09 2021-06-11 Inpatient DAVE Eldridge [facility] OBPP [id number] [facility] 09:56:00 12:52:00 Arlene [id number] [facility] 2021-05-19 2021-05-23 Inpatient DAVE Eldridge [facility] OBANTE [id number] [facility] 18:28:00 22:15:00 Arlene [id number] [facility] 2021-05-20 2021-05-20 Outpatient DARINEL EldridgeWU REFE [id number] 1-20 [facility] 08:18:00 08:18:[id number] [facility] 2021-05-16 2021-05-16 Emergency [facility] [id number] [facility] 10:46:00 14:47:00 omez, [id number] [facility] 2021-05-13 2021-05-13 Emergency EM Jazmyn [facility] STEVENSON [id number] [facility] 18:26:00 21:54:00 Arlene [id number] [facility] 2021-01-26 2021-01-26 Ca [facility] [place] - [id number] M [facility] 00:00:00 00:00:00 Discovery alexandra Rajan COVERAGE ANALYST: [address] [facility] [address] [place] [address] , Ph. 2020-12-20 2020-12-20 Outpatient DAVE Eldridge [facility] DIAB [id number] [facility] 12:54:00 12:54:00 Arlene [id number] [facility] 2020-12-19 2020-12-19 Ca [facility] [place] - [id number] M [facility] 00:00:00 00:00:00 Discovery alexandra Rajan COVERAGE ANALYST: [address] [facility] [address], [facility] [place] [address] , Ph. 2020-12-05 2020-12-05 Telephone Andrés, 1.2.840.1 [id number] 2099 [id number] [facility] 00:00:00 00:00:[address] 3.430.2.7 Hospit a .3.800955 l .8 2020-08-09 2020-08-09 Orders Kareem, 1.2.840.1 [id number] 2099 [id number] [facility] 00:00:00 00:00:00 Only Courtney 67353.1.[address] 3.430.2.7 Hospit a .3.024723 l .8 2020-08-09 2020-08-09 Orders Kareem 1.2.840.1 [id number] 2099 [id number] [facility] 00:00:00 00:00:00 Only Courtney 47779.1.[address] 3.430.2.7 Hospit a .3.836969 l .8 2020-07-06 2020-07-06 Office Bhanu 1.2.840.1 [id number] 2099 [id number] [facility] 11:09:52 11:49:26 Visit Yolanda 18453.1.[address] [place] 3.430.2.7 [facility]osp [facility] .3.283890 l .8 2020-07-06 2020-07-06 Travel 1.2.840.1 1.2.007.447 2968 [id number] [facility] 00:00:00 00:00:[address] 3.430.2.7 0.2.7.3.698 Ho spita .3.499252 084.8 l .8 2020-06-20 2020-06-20 [facility] [place] - [id number] Rivera atagor 00:00:00 00:00:00 Discovery alexandra Rajan COVERAGE ANALYST: [address] [facility] - [address], [facility] [address] , Ph. 2020-06-14 2020-06-14 Telephone Bhanu 1.2.840.1 [id number] 21 [id number] [facility] 00:00:00 00:00:00 Yolanda 40982.1.1 [address] [facility] 3.430.2.7 [facility]osp [facility] .3.714452 l .8 2020-06-09 2020-06-09 Laz Drummond, 1.2.840.1 [id number] 21 [id number] [facility] 00:00:00 00:00:00 Yolanda 33171.1.1 [address] [facility] 3.430.2.7 [facility]osp [facility] .3.789697 l .8 2020-05-20 2020-05-20 Junie DICKENS [place] - [id number] M [facility] 00:00:00 00:00:00 Lana Jones Medical Medical COVERAGE ANALYST: [address] [place] [phone] , Ph. 2020-05-13 2020-05-13 Junie CHRISSIE [place] - [id number] [facility] 00:00:00 00:00:00 Lana Jones Medical Medical COVERAGE ANALYST: [address] [place] [address] , Ph. 2020-05-06 2020-05-06 Junie DICKENS [place] - [id number] [facility] 00:00:00 00:00:00 Lana Jones Medical Medical COVERAGE ANALYST: [address] [place] [phone] , Ph. 2019-11-19 2019-11-19 Ca MM [place] - [id number] [facility] 00:00:00 00:00:00 Discovery alexandra Rajan COVERAGE ANALYST: [address] [place] [phone] , Ph. 2019-09-09 2019-09-09 Ca MALIK [place] - [id number] M [facility] 00:00:00 00:00:00 Discovery alexandra Rajan COVERAGE ANALYST: [address] [place] [address] [facility] - [address], [facility] [place] [address] , Ph. 2019-01-26 2019-01-26 Ca MALIK [place] - [id number] [facility] 00:00:00 00:00:00 MohiniDiscovery da COVERAGE ANALYST: [address] [place] [address], [facility] - [address], [facility] [place] [address] , Ph. 2018-10-21 2018-10-21 Ca MALIK [place] - [id number] M [facility] 00:00:00 00:00:00 MohiniDiscovery da COVERAGE ANALYST: [address] [place] [address], [facility] - [address], [facility] [address] , Ph. 2018-10-15 2018-10-15 Ca MALIK [place] - [id number] [facility] 00:00:00 00:00:00 Discovery alexandra Rajan COVERAGE ANALYST: [address] [place] [address], [facility] - [address], [facility] [place] [address] , Ph. Results Test Description Test Time Test Comments Results Result Comments Source GLUBED 2021-08-17 08:44:00 Test Item Value Reference Range Interpretation Comme nts GLUBED (test code = GLUBED) 176 mg/dL 65-110 H UR HCG [id number] 03:53:00 Test Item Value Reference Range Interpretation Comments UR HCG QUAL (test NEGATIVE 1. Very di lute urine code = HCGQLU) specimens, as indicated by a lowspecific g ravity, may not contain rep resentative levels ofhCG. 2 . False negative result s may occur when the levels of hCGare below the sensi tivity level of the test. If is still suspec ty, a first morningurine sp ecimen should be colle cted 48 hours later and tested. CBC W/AUTO [id number] 01:21:00 Test Item Value Reference Range Interpretation Comments WHITE BLOOD CELL (test code = WBC) 6.6 K/mm3 6.5-12.3 N RED BLOOD CELL (test code = RBC) 4.75 M/mm3 3.51-4.69 H HEMOGLOBIN (test code = HGB) 14.1 g/dL 10.1-13.8 H HEMATOCRIT (test code = HCT) 41.4 % 32.5-41.8 N MEAN CELL VOLUME (test code = MCV) 87.2 fL 84.6-96.6 N MEAN CELL HGB (test code = MCH) 29.7 pg 27.3-33.9 N MEAN CELL HGB CONCETRATION (test 34.1 gm/dL 32.0-34.2 N code = MCHC) RED CELL DISTRIBUTION WIDTH (test 13.3 % 12.2-16.3 N code = RDW) PLATELET COUNT (test code = PLT) 202 K/mm3 134-363 N MEAN PLATELET VOLUME (test code = 10.6 fL 9.2-12.7 N MPV) NEUTROPHIL % (test code = NT%) 55.7 % 57.9-77.3 L LYMPHOCYTE % (test code = LY%) 33.5 % 14.5-29.7 H MONOCYTE % (test code = MO%) 8.5 % 3.6-10.2 N EOSINOPHIL % (test code = EO%) 1.1 % 0.0-3.0 N BASOPHIL % (test code = BA%) 0.9 % 0.1-0.9 N NEUTROPHIL # (test code = NT#) 3.7 K/mm3 LYMPHOCYTE # (test code = LY#) 2.2 K/mm3 MONOCYTE # (test code = MO#) 0.6 K/mm3 EOSINOPHIL # (test code = EO#) 0.07 K/mm3 BASOPHIL # (test code = BA#) 0.1 K/mm3 RBC MORPHOLOGY REQUIRED (test code NORMAL NORMAL = RBCM) PLATELET MORPHOLOGY REQUIRED (test NORMAL NORMAL code = PLTMR) MANUAL DIFF REQUIRED (test code = YES MDIFF) WBC [id number] 01:21:00 Test Item Value Reference Range Interpretation Comments SEGMENTED NEUTROPHILS (test code = 61 % 56.5-79.4 N SEG) LYMPHOCYTE (test code = LYMPH) 20 % 20-40 N TOTAL CELLS COUNTED (test code = 100 #CELLS TCC) ATYPICAL LYMPH (test code = 10 % ALYMPH) MONOCYTE (test code = MON) 5 % 0-8 N EOSINOPHIL (test code = EOS) 2 % 0-4 N BASOPHIL (test code = BASO) 2 % 0-2 N PLATELET ESTIMATE (test code = ADEQUATE ADEQ PLTEST) PLATELET MORPHOLOGY (test code = NORMAL NORMAL PLTMORPH) BASIC METABOLIC [id number] 00:34:00 Test Item Value Reference Range Interpretation Comments SODIUM (test code = NA) 143 mEq/L 135-145 N POTASSIUM (test code = K) 3.9 mEq/L 3.5-5.0 N CHLORIDE (test code = CL) 105 mEq/L 100-115 N CARBON DIOXIDE (test code = CO2) 25 mEq/L 22-31 N ANION GAP (test code = GAP) 16.90 10-20 N GLUCOSE (test code = GLU) 157 mg/dL 65-110 H BLOOD UREA NITROGEN (test code = 14 mg/dL 7-18 N BUN) GLOMERULAR FILTRATION RATE (test 114 ml/min >60 N code = GFR) CREATININE (test code = CREAT) 0.6 mg/dL 0.5-1.0 N CALCIUM (test code = CA) 8.9 mg/dL 8.4-10.2 N COVID 19 Asymptomatic IH [id number] 00:27:00 Test Item Value Reference Range Interpretation Comments COVID 19 NEGATIVE NEGATIVE This test has b een Asymptomatic IH AG authorize d only for the (test code = detection ofpro teins from COVNONPUIAG) SARS-CoV-2, not for any other viruses orpathogens. N egative results should be treated as presumptive andconfirmed wi th a molecular assay , if necessary for patientmanageme nt. Negative result s do not rule out COVID- 19 andshould not b e used as the sole basis for treatment orpat ient management deci sions, including infec tion controldecision s. Negative result s should be considered i n thecontext of a patient's recent exposure s, history and thepresence of clinical signs and symptoms consis tent withCOVID-19. T his test has not been FD A cleared or approved; th e test hasbeen authori zed by FDA under an Emerge ncy Use Authorization(E UA) for use by laborato jason certified under the CLIA thatmeet the re quirements to perform mode rate, high or waivedcomple xity tests. This piyush t is authorized for use at thePoint of Car e (POC), i.e., in patien t care settingsoperati ng under a CLIA Certificat e of Waiver, Certifi carmelita ofCompliance, o r Certificate of Accreditation. This test is only authori kasandra for the duration of thedeclaration that circumstances e xist justifying theauthorizatio n of emergency use o f in vitro diagnostic test sfor detection and/o r diagnosis of CO VID-19 under [id number] 4(b)(1) of the Act, 21 U.S .C. 360bbb-3(b)(1), unless theauthorizatio n is terminated or r evoked sooner. PLACENTA THIRD [id number] 13:02:00 Test Item Value Reference Range Interpretation Comments PLACENTA THIRD TRIMESTER (test code = PLACIII) RUN DATE: 06/21/21 [facility] PAGE 1 RUN TIME: 832 Specimen Inquiry RUN USER: INTERFACE ESTHER ENT: MARGARET GERBER LOC: [facility] U #: [id number] AGE/SX: 36/F ROOM: RE06/09/21REG DR: Arlene Eldridge MD : 87 BED: A DIS: 06/11/21 STATUS: DIS IN TLOC: SPEC #: [id number] RECD: 06/13/21 STATUS: TACOS BUCKNER #: [id number] ELMO: 06/09/21- SUBM DR: Arlene Eldridge MD ENTERED: 06/13/21 SP TYPE: PLACIII OTHR DR: ORDERED: LEVEL V SURGICA CODES: [id number] - PLACENTA, NOS PROCEDURES: LEVEL V SURGICA (Incomplete) TISSUES: PLACENTA, NOS - PLACENTA CLINICAL HISTORY 36 year old, 37.2 weeks, section, CHTN, IDDM (wpd) FINAL DIAGNOSIS Placenta, galloway gestation (37.2 weeks): - third trimester villous architecture - patchy increase in perivillous fibrinoid - no inflammation of umbilical cord or membranes - umbilical cord: insertion 3 cm from margin, 3-vessel, 56 cm length - placental weight: actual 396 gms/expected mean 467 gms (25-30th percentile) CPT: 42109 [place]/wpd GROSS DESCRIPTION The specimen was received in a container labeled with the patient's name, unit number and designated "placenta". The following attributes are observed: Cord insertion: 3 cm from margin Cord length: 56 cm Number of vessels: 3 Cord color: Blue-preciado Other cord findings: None surface findings: Steel blue, wrinkled, glistening Vasculature: Unremarkable blood vasculature Membranes rupture site: At the margin Membrane color: Preciado Other membrane findings: Thickened and opaque; only scant membranes are noted along the edge of the placental disk The trimmed placental weight: 396 gm Disk measurement: 22 x 16 x 2.6 cm CONTINUED ON NEXT PAGE RUN DATE: 06/21/21 [facility] PAGE 2 RUN TIME: 832 Specimen Inquiry RUN USER: INTERFACE SPEC #: [id number] PATIENT: MARGARET GERBER #[id number] (Continued) ------- GROSS DESCRIPTION (Continued) Accessory lobes: None Maternal surface: Lobulated and intact Parenchyma: Red, beefy, and spongy Parenchyma lesions: None Cassettes: A1 through A4 hz/estela 06/13/21 ---- Signed Tanvir Loya 06/20/21 1302 END OF REPORT [id number] 11:47:00 Test Item Value Reference Range Interpretation Comments GLUBED (test code = GLUBED) 84 mg/dL 65-110 N [id number] 06:08:00 Test Item Value Reference Range Interpretation Comments GLUBED (test code = GLUBED) 71 mg/dL 65-110 N [id number] 19:58:00 Test Item Value Reference Range Interpretation Comments GLUBED (test code = GLUBED) 118 mg/dL 65-110 H [id number] 14:59:00 Test Item Value Reference Range Interpretation Comments GLUBED (test code = GLUBED) 160 mg/dL 65-110 H [id number] 10:12:00 Test Item Value Reference Range Interpretation Comments GLUBED (test code = GLUBED) 122 mg/dL 65-110 H [id number] 06:50:00 Test Item Value Reference Range Interpretation Comments GLUBED (test code = GLUBED) 135 mg/dL 65-110 H HGB [id number] 06:19:00 Test Item Value Reference Range Interpretation Comments HEMOGLOBIN (test code = 9.6 g/dL 10.1-13.8 L Resu lts verified by HGB) repeat analysis HEMATOCRIT (test code = 28.8 % 32.5-41.8 L Resu lts verified by HCT) repeat analysis [id number] 22:33:00 Test Item Value Reference Range Interpretation Comments GLUBED (test code = GLUBED) 127 mg/dL 65-110 H [id number] 13:33:00 Test Item Value Reference Range Interpretation Comments GLUBED (test code = GLUBED) 105 mg/dL 65-110 N COMPREHENSIVE METABOLIC [id number] 10:29:00 Test Item Value Reference Range Interpretation Comments SODIUM (test code = NA) 139 mEq/L 135-145 N POTASSIUM (test code = K) 4.0 mEq/L 3.5-5.0 N CHLORIDE (test code = CL) 104 mEq/L 100-115 N CARBON DIOXIDE (test code = CO2) 20 mEq/L 22-31 L ANION GAP (test code = GAP) 18.60 10-20 N GLUCOSE (test code = GLU) 70 mg/dL 65-110 N BLOOD UREA NITROGEN (test code = 12 mg/dL 7-18 N BUN) GLOMERULAR FILTRATION RATE (test 141 ml/min >60 N code = GFR) CREATININE (test code = CREAT) 0.5 mg/dL 0.5-1.0 N TOTAL PROTEIN (test code = PROT) 6.3 gm/dL 6.3-8.2 N ALBUMIN (test code = ALB) 2.8 gm/dL 3.4-4.8 L CALCIUM (test code = CA) 8.6 mg/dL 8.4-10.2 N BILIRUBIN TOTAL (test code = 0.2 mg/dL 0.2-1.0 N BILT) SGOT/AST (test code = AST) 20 units/L 15-37 N SGPT/ALT (test code = ALT) 15 units/L 12-78 N ALKALINE PHOSPHATASE TOTAL (test 140 units/L 46-116 H code = ALKP) AG HEPATITIS B [id number] 13:24:00 Test Item Value Reference Range Interpretation Comments AG HEPATITIS B SURFACE (test code NONREACTIVE NONREACTIVE = HBSAG) AB HEPATITIS C [id number] 13:24:00 Test Item Value Reference Range Interpretation Comments AB HEPATITIS C (test code = NONREACTIVE NONREACTIVE HCVAB) SIGNAL TO CUTOFF (test code = 0.09 <0.80 N CUTOFF) RUBELLA [id number] 13:24:00 Test Item Value Reference Range Interpretation Comments RUBELLA SCREEN 30.3 IUnit/ml Results >10. 0IUnits/ml (test code = are considered positive RUBSC) inaccordance wi th the CLSI guidelines and based on the [employer] S tandard for Anti-Rubell a serum as anindicator of immune status and a br eakpoint to detect mostseropositiv e persons. AB [id number] 13:24:00 Test Item Value Reference Range Interpretation Comments AB TREPONEMA (test code = TREPAB) NONREACTIVE NONREACTIVE AB HIV 1 13:24:00 Test Item Value Reference Range Interpretation Comments AB HIV 1 2 (test NONREACTIVE NONREACTIVE Done by [facility] code = [id number]) 4th Gen HIV Ag/Ab Combo Screen COVID 19 Asymptomatic IH [id number] 12:37:00 Test Item Value Reference Range Interpretation Comments COVID 19 NEGATIVE NEGATIVE This test has b een Asymptomatic IH AG authorize d only for the (test code = detection ofpro teins from COVNONPUIAG) SARS-CoV-2, not for any other viruses orpathogens. N egative results should be treated as presumptive andconfirmed wi th a molecular assay , if necessary for patientmanageme nt. Negative result s do not rule out COVID- 19 andshould not b e used as the sole basis for treatment orpat ient management deci sions, including infec tion controldecision s. Negative result s should be considered i n thecontext of a patient's recent exposure s, history and thepresence of clinical signs and symptoms consis tent withCOVID-19. T his test has not been FD A cleared or approved; th e test hasbeen authori kasandra by FDA under an Emerge ncy Use Authorization(E UA) for use by laborato jason certified under the CLIA thatmeet the re quirements to perform mode rate, high or waivedcomple xity tests. This piyush t is authorized for use at thePoint of Car e (POC), i.e., in patien t care settingsoperati ng under a CLIA Certificat e of Waiver, Certifi carmelita ofCompliance, o r Certificate of Accreditation. This test is only authori zed for the duration of thedeclaration that circumstances e xist justifying theauthorizatio n of emergency use o f in vitro diagnostic test sfor detection and/o r diagnosis of CO VID-19 under [id number] 4(b)(1) of the Act, 21 U.S .C. 360bbb-3(b)(1), unless theauthorizatio n is terminated or r evoked sooner. CBC W/AUTO [id number] 12:08:00 Test Item Value Reference Range Interpretation Comments WHITE BLOOD CELL (test code = WBC) 9.2 K/mm3 6.5-12.3 N RED BLOOD CELL (test code = RBC) 4.35 M/mm3 3.51-4.69 N HEMOGLOBIN (test code = HGB) 13.1 g/dL 10.1-13.8 N HEMATOCRIT (test code = HCT) 39.5 % 32.5-41.8 N MEAN CELL VOLUME (test code = MCV) 90.8 fL 84.6-96.6 N MEAN CELL HGB (test code = MCH) 30.1 pg 27.3-33.9 N MEAN CELL HGB CONCETRATION (test 33.2 gm/dL 32.0-34.2 N code = MCHC) RED CELL DISTRIBUTION WIDTH (test 15.0 % 12.2-16.3 N code = RDW) PLATELET COUNT (test code = PLT) 240 K/mm3 134-363 N MEAN PLATELET VOLUME (test code = 11.7 fL 9.2-12.7 N MPV) NEUTROPHIL % (test code = NT%) 68.6 % 57.9-77.3 N LYMPHOCYTE % (test code = LY%) 19.7 % 14.5-29.7 N MONOCYTE % (test code = MO%) 7.8 % 3.6-10.2 N EOSINOPHIL % (test code = EO%) 2.6 % 0.0-3.0 N BASOPHIL % (test code = BA%) 0.8 % 0.1-0.9 N NEUTROPHIL # (test code = NT#) 6.3 K/mm3 LYMPHOCYTE # (test code = LY#) 1.8 K/mm3 MONOCYTE # (test code = MO#) 0.7 K/mm3 EOSINOPHIL # (test code = EO#) 0.24 K/mm3 BASOPHIL # (test code = BA#) 0.1 K/mm3 RBC MORPHOLOGY REQUIRED (test code NORMAL NORMAL = RBCM) PLATELET MORPHOLOGY REQUIRED (test NORMAL NORMAL code = PLTMR) [id number] 20:48:00 Test Item Value Reference Range Interpretation Comments GLUBED (test code = GLUBED) 243 mg/dL 65-110 H [id number] 14:48:00 Test Item Value Reference Range Interpretation Comments GLUBED (test code = GLUBED) 126 mg/dL 65-110 H [id number] 11:16:00 Test Item Value Reference Range Interpretation Comments GLUBED (test code = GLUBED) 115 mg/dL 65-110 H BASIC METABOLIC [id number] 06:31:00 Test Item Value Reference Range Interpretation Comments SODIUM (test code = NA) 142 mEq/L 135-145 N POTASSIUM (test code = K) 4.5 mEq/L 3.5-5.0 N CHLORIDE (test code = CL) 108 mEq/L 100-115 N CARBON DIOXIDE (test code = CO2) 23 mEq/L 22-31 N ANION GAP (test code = GAP) 15.90 10-20 N GLUCOSE (test code = GLU) 104 mg/dL 65-110 N BLOOD UREA NITROGEN (test code = 18 mg/dL 7-18 N BUN) GLOMERULAR FILTRATION RATE (test 141 ml/min >60 N code = GFR) CREATININE (test code = CREAT) 0.5 mg/dL 0.5-1.0 N CALCIUM (test code = CA) 8.6 mg/dL 8.4-10.2 N CBC W/AUTO [id number] 06:18:00 Test Item Value Reference Range Interpretation Comments WHITE BLOOD CELL (test code = WBC) 10.7 K/mm3 6.5-12.3 N RED BLOOD CELL (test code = RBC) 4.25 M/mm3 3.51-4.69 N HEMOGLOBIN (test code = HGB) 12.7 g/dL 10.1-13.8 N HEMATOCRIT (test code = HCT) 38.3 % 32.5-41.8 N MEAN CELL VOLUME (test code = MCV) 90.1 fL 84.6-96.6 N MEAN CELL HGB (test code = MCH) 29.9 pg 27.3-33.9 N MEAN CELL HGB CONCETRATION (test 33.2 gm/dL 32.0-34.2 N code = MCHC) RED CELL DISTRIBUTION WIDTH (test 13.4 % 12.2-16.3 N code = RDW) PLATELET COUNT (test code = PLT) 378 K/mm3 134-363 H MEAN PLATELET VOLUME (test code = 9.9 fL 9.2-12.7 N MPV) NEUTROPHIL % (test code = NT%) 75.5 % 57.9-77.3 N LYMPHOCYTE % (test code = LY%) 15.2 % 14.5-29.7 N MONOCYTE % (test code = MO%) 6.3 % 3.6-10.2 N EOSINOPHIL % (test code = EO%) 0.4 % 0.0-3.0 N BASOPHIL % (test code = BA%) 0.3 % 0.1-0.9 N NEUTROPHIL # (test code = NT#) 8.1 K/mm3 LYMPHOCYTE # (test code = LY#) 1.6 K/mm3 MONOCYTE # (test code = MO#) 0.7 K/mm3 EOSINOPHIL # (test code = EO#) 0.04 K/mm3 BASOPHIL # (test code = BA#) 0.0 K/mm3 RBC MORPHOLOGY REQUIRED (test code NORMAL NORMAL = RBCM) PLATELET MORPHOLOGY REQUIRED (test NORMAL NORMAL code = PLTMR) [id number] 21:26:00 Test Item Value Reference Range Interpretation Comments GLUBED (test code = GLUBED) 134 mg/dL 65-110 H [id number] 15:29:00 Test Item Value Reference Range Interpretation Comments GLUBED (test code = GLUBED) 90 mg/dL 65-110 N [id number] 13:21:00 Test Item Value Reference Range Interpretation Comments GLUBED (test code = GLUBED) 119 mg/dL 65-110 H BASIC METABOLIC [id number] 09:44:00 Test Item Value Reference Range Interpretation Comments SODIUM (test code = NA) 138 mEq/L 135-145 N POTASSIUM (test code = K) 4.2 mEq/L 3.5-5.0 N CHLORIDE (test code = CL) 106 mEq/L 100-115 N CARBON DIOXIDE (test code = CO2) 19 mEq/L 22-31 L ANION GAP (test code = GAP) 16.80 10-20 N GLUCOSE (test code = GLU) 106 mg/dL 65-110 N BLOOD UREA NITROGEN (test code = 18 mg/dL 7-18 N BUN) GLOMERULAR FILTRATION RATE (test 114 ml/min >60 N code = GFR) CREATININE (test code = CREAT) 0.6 mg/dL 0.5-1.0 N CALCIUM (test code = CA) 8.7 mg/dL 8.4-10.2 N LACTIC DEHYDROGENASE(LDH)2021-05-22 09:44:00 Test Item Value Reference Range Interpretation Comments LACTIC DEHYDROGENASE(LDH) (test 179 units/L 81-234 N code = LDH) [id number] 09:44:00 Test Item Value Reference Range Interpretation Comments MAGNESIUM (test code = MAG) 1.9 mg/dL 1.8-2.4 N [id number] 09:44:00 Test Item Value Reference Range Interpretation Comments FERRITIN (test code = 165 >19 ye ars 30 - REED) 400 15 - 150 BASIC METABOLIC [id number] 06:00:00 Test Item Value Reference Range Interpretation Comments SODIUM (test code = NA) 142 mEq/L 135-145 N POTASSIUM (test code = K) 4.0 mEq/L 3.5-5.0 N CHLORIDE (test code = CL) 110 mEq/L 100-115 N CARBON DIOXIDE (test code = CO2) 21 mEq/L 22-31 L ANION GAP (test code = GAP) 15.00 10-20 N GLUCOSE (test code = GLU) 99 mg/dL 65-110 N BLOOD UREA NITROGEN (test code = 18 mg/dL 7-18 N BUN) GLOMERULAR FILTRATION RATE (test 114 ml/min >60 N code = GFR) CREATININE (test code = CREAT) 0.6 mg/dL 0.5-1.0 N CALCIUM (test code = CA) 8.6 mg/dL 8.4-10.2 N LACTIC DEHYDROGENASE(LDH)2021-05-22 06:00:00 Test Item Value Reference Range Interpretation Comments LACTIC DEHYDROGENASE(LDH) (test 122 units/L 81-234 N code = LDH) [id number] 06:00:00 Test Item Value Reference Range Interpretation Comments MAGNESIUM (test code = MAG) 2.0 mg/dL 1.8-2.4 N CBC W/AUTO [id number] 05:26:00 Test Item Value Reference Range Interpretation Comments WHITE BLOOD CELL (test code = WBC) 10.4 K/mm3 6.5-12.3 N RED BLOOD CELL (test code = RBC) 4.07 M/mm3 3.51-4.69 N HEMOGLOBIN (test code = HGB) 12.1 g/dL 10.1-13.8 N HEMATOCRIT (test code = HCT) 36.7 % 32.5-41.8 N MEAN CELL VOLUME (test code = MCV) 90.2 fL 84.6-96.6 N MEAN CELL HGB (test code = MCH) 29.7 pg 27.3-33.9 N MEAN CELL HGB CONCETRATION (test 33.0 gm/dL 32.0-34.2 N code = MCHC) RED CELL DISTRIBUTION WIDTH (test 13.4 % 12.2-16.3 N code = RDW) PLATELET COUNT (test code = PLT) 349 K/mm3 134-363 N MEAN PLATELET VOLUME (test code = 9.8 fL 9.2-12.7 N MPV) NEUTROPHIL % (test code = NT%) 76.4 % 57.9-77.3 N LYMPHOCYTE % (test code = LY%) 15.6 % 14.5-29.7 N MONOCYTE % (test code = MO%) 5.4 % 3.6-10.2 N EOSINOPHIL % (test code = EO%) 0.1 % 0.0-3.0 N BASOPHIL % (test code = BA%) 0.3 % 0.1-0.9 N NEUTROPHIL # (test code = NT#) 8.0 K/mm3 LYMPHOCYTE # (test code = LY#) 1.6 K/mm3 MONOCYTE # (test code = MO#) 0.6 K/mm3 EOSINOPHIL # (test code = EO#) 0.01 K/mm3 BASOPHIL # (test code = BA#) 0.0 K/mm3 RBC MORPHOLOGY REQUIRED (test code NORMAL NORMAL = RBCM) PLATELET MORPHOLOGY REQUIRED (test NORMAL NORMAL code = PLTMR) [id number] 23:48:00 Test Item Value Reference Range Interpretation Comments GLUBED (test code = GLUBED) 122 mg/dL 65-110 H [id number] 23:48:00 Test Item Value Reference Range Interpretation Comments GLUBED (test code = GLUBED) 113 mg/dL 65-110 H [id number] 23:48:00 Test Item Value Reference Range Interpretation Comments GLUBED (test code = GLUBED) 121 mg/dL 65-110 H [id number] 23:48:00 Test Item Value Reference Range Interpretation Comments GLUBED (test code = GLUBED) 74 mg/dL 65-110 N [id number] 15:42:00 Test Item Value Reference Range Interpretation Comments GLUBED (test code = GLUBED) 93 mg/dL 65-110 N [id number] 11:06:00 Test Item Value Reference Range Interpretation Comments GLUBED (test code = GLUBED) 169 mg/dL 65-110 H BASIC METABOLIC [id number] 06:58:00 Test Item Value Reference Range Interpretation Comments SODIUM (test code = NA) 143 mEq/L 135-145 N POTASSIUM (test code = K) 4.1 mEq/L 3.5-5.0 N CHLORIDE (test code = CL) 110 mEq/L 100-115 N CARBON DIOXIDE (test code = CO2) 20 mEq/L 22-31 L ANION GAP (test code = GAP) 17.30 10-20 N GLUCOSE (test code = GLU) 121 mg/dL 65-110 H BLOOD UREA NITROGEN (test code = 18 mg/dL 7-18 N BUN) GLOMERULAR FILTRATION RATE (test 114 ml/min >60 N code = GFR) CREATININE (test code = CREAT) 0.6 mg/dL 0.5-1.0 N CALCIUM (test code = CA) 8.5 mg/dL 8.4-10.2 N LACTIC DEHYDROGENASE(LDH)2021-05-21 06:58:00 Test Item Value Reference Range Interpretation Comments LACTIC DEHYDROGENASE(LDH) (test 142 units/L 81-234 code = LDH) [id number] 06:58:00 Test Item Value Reference Range Interpretation Comments MAGNESIUM (test code = MAG) 1.8 mg/dL 1.8-2.4 N CBC W/AUTO [id number] 06:19:00 Test Item Value Reference Range Interpretation Comments WHITE BLOOD CELL (test code = WBC) 8.3 K/mm3 6.5-12.3 N RED BLOOD CELL (test code = RBC) 3.96 M/mm3 3.51-4.69 N HEMOGLOBIN (test code = HGB) 11.9 g/dL 10.1-13.8 N HEMATOCRIT (test code = HCT) 35.7 % 32.5-41.8 N MEAN CELL VOLUME (test code = MCV) 90.2 fL 84.6-96.6 N MEAN CELL HGB (test code = MCH) 30.1 pg 27.3-33.9 N MEAN CELL HGB CONCETRATION (test 33.3 gm/dL 32.0-34.2 N code = MCHC) RED CELL DISTRIBUTION WIDTH (test 13.5 % 12.2-16.3 N code = RDW) PLATELET COUNT (test code = PLT) 332 K/mm3 134-363 N MEAN PLATELET VOLUME (test code = 10.0 fL 9.2-12.7 N MPV) NEUTROPHIL % (test code = NT%) 77.1 % 57.9-77.3 N LYMPHOCYTE % (test code = LY%) 16.6 % 14.5-29.7 N MONOCYTE % (test code = MO%) 4.7 % 3.6-10.2 N EOSINOPHIL % (test code = EO%) 0.1 % 0.0-3.0 N BASOPHIL % (test code = BA%) 0.2 % 0.1-0.9 N NEUTROPHIL # (test code = NT#) 6.4 K/mm3 LYMPHOCYTE # (test code = LY#) 1.4 K/mm3 MONOCYTE # (test code = MO#) 0.4 K/mm3 EOSINOPHIL # (test code = EO#) 0.01 K/mm3 BASOPHIL # (test code = BA#) 0.0 K/mm3 RBC MORPHOLOGY REQUIRED (test code NORMAL NORMAL = RBCM) PLATELET MORPHOLOGY REQUIRED (test NORMAL NORMAL code = PLTMR) [id number] 15:28:00 Test Item Value Reference Range Interpretation Comments GLUBED (test code = GLUBED) 124 mg/dL 65-110 H [id number] 11:57:00 Test Item Value Reference Range Interpretation Comments GLUBED (test code = GLUBED) 107 mg/dL 65-110 N CBC W/AUTO [id number] 07:09:00 Test Item Value Reference Range Interpretation Comments WHITE BLOOD CELL (test code = WBC) 6.1 K/mm3 6.5-12.3 L RED BLOOD CELL (test code = RBC) 4.18 M/mm3 3.51-4.69 N HEMOGLOBIN (test code = HGB) 12.6 g/dL 10.1-13.8 N HEMATOCRIT (test code = HCT) 37.3 % 32.5-41.8 N MEAN CELL VOLUME (test code = MCV) 89.2 fL 84.6-96.6 N MEAN CELL HGB (test code = MCH) 30.1 pg 27.3-33.9 N MEAN CELL HGB CONCETRATION (test 33.8 gm/dL 32.0-34.2 N code = MCHC) RED CELL DISTRIBUTION WIDTH (test 13.8 % 12.2-16.3 N code = RDW) PLATELET COUNT (test code = PLT) 327 K/mm3 134-363 N MEAN PLATELET VOLUME (test code = 10.2 fL 9.2-12.7 N MPV) MANUAL DIFF REQUIRED (test code = YES MDIFF) RBC MORPHOLOGY REQUIRED (test code NORMAL NORMAL = RBCM) PLATELET MORPHOLOGY REQUIRED (test NORMAL NORMAL code = PLTMR) WBC [id number] 07:09:00 Test Item Value Reference Range Interpretation Comments TOTAL CELLS COUNTED (test code = 100 #CELLS TCC) SEGMENTED NEUTROPHILS (test code = 84 % 56.5-79.4 H SEG) LYMPHOCYTE (test code = LYMPH) 13 % 20-40 L MONOCYTE (test code = MON) 3 % 0-8 N C REACTIVE [id number] 06:58:00 Test Item Value Reference Range Interpretation Comments C REACTIVE PROTEIN 5.2 mg/dL 0.6-1.2 HH RESULTS V ERIFIED BY (test code = CRP) REPEAT JOSELYN LYSISRESULTS CALLED TO WAI FlynnREAD BACK & CONFIRME D? YES.BY YAIMAELB1 05/07. BASIC METABOLIC [id number] 06:56:00 Test Item Value Reference Range Interpretation Comments SODIUM (test code = NA) 138 mEq/L 135-145 N POTASSIUM (test code = K) 4.2 mEq/L 3.5-5.0 N CHLORIDE (test code = CL) 106 mEq/L 100-115 N CARBON DIOXIDE (test code = CO2) 19 mEq/L 22-31 L ANION GAP (test code = GAP) 16.80 10-20 N GLUCOSE (test code = GLU) 106 mg/dL 65-110 N BLOOD UREA NITROGEN (test code = 18 mg/dL 7-18 N BUN) GLOMERULAR FILTRATION RATE (test 114 ml/min >60 N code = GFR) CREATININE (test code = CREAT) 0.6 mg/dL 0.5-1.0 N CALCIUM (test code = CA) 8.7 mg/dL 8.4-10.2 N LACTIC DEHYDROGENASE(LDH)2021-05-20 06:56:00 Test Item Value Reference Range Interpretation Comments LACTIC DEHYDROGENASE(LDH) (test 179 units/L 81-234 N code = LDH) [id number] 06:56:00 Test Item Value Reference Range Interpretation Comments MAGNESIUM (test code = MAG) 1.9 mg/dL 1.8-2.4 N [id number] 06:56:00 Test Item Value Reference Range Interpretation Comments FERRITIN (test code = REED) NG/ML CBC W/AUTO [id number] 06:09:00 Test Item Value Reference Range Interpretation Comments WHITE BLOOD CELL (test code = WBC) 6.1 K/mm3 6.5-12.3 L RED BLOOD CELL (test code = RBC) 4.18 M/mm3 3.51-4.69 N HEMOGLOBIN (test code = HGB) 12.6 g/dL 10.1-13.8 N HEMATOCRIT (test code = HCT) 37.3 % 32.5-41.8 N MEAN CELL VOLUME (test code = MCV) 89.2 fL 84.6-96.6 N MEAN CELL HGB (test code = MCH) 30.1 pg 27.3-33.9 N MEAN CELL HGB CONCETRATION (test 33.8 gm/dL 32.0-34.2 N code = MCHC) RED CELL DISTRIBUTION WIDTH (test 13.8 % 12.2-16.3 N code = RDW) PLATELET COUNT (test code = PLT) 327 K/mm3 134-363 N MEAN PLATELET VOLUME (test code = 10.2 fL 9.2-12.7 N MPV) MANUAL DIFF REQUIRED (test code = YES MDIFF) RBC MORPHOLOGY REQUIRED (test code NORMAL = RBCM) PLATELET MORPHOLOGY REQUIRED (test NORMAL code = PLTMR) WBC [id number] 06:09:00 Test Item Value Reference Range Interpretation Comments SEGMENTED NEUTROPHILS (test code = SEG) % 56.5-79.4 LYMPHOCYTE (test code = LYMPH) % 20-40 CBC W/AUTO [id number] 06:09:00 Test Item Value Reference Range Interpretation Comments WHITE BLOOD CELL (test code = WBC) 6.1 K/mm3 6.5-12.3 L RED BLOOD CELL (test code = RBC) 4.18 M/mm3 3.51-4.69 N HEMOGLOBIN (test code = HGB) 12.6 g/dL 10.1-13.8 N HEMATOCRIT (test code = HCT) 37.3 % 32.5-41.8 N MEAN CELL VOLUME (test code = MCV) 89.2 fL 84.6-96.6 N MEAN CELL HGB (test code = MCH) 30.1 pg 27.3-33.9 N MEAN CELL HGB CONCETRATION (test 33.8 gm/dL 32.0-34.2 N code = MCHC) RED CELL DISTRIBUTION WIDTH (test 13.8 % 12.2-16.3 N code = RDW) PLATELET COUNT (test code = PLT) 327 K/mm3 134-363 N MEAN PLATELET VOLUME (test code = 10.2 fL 9.2-12.7 N MPV) MANUAL DIFF REQUIRED (test code = YES MDIFF) RBC MORPHOLOGY REQUIRED (test code NORMAL = RBCM) PLATELET MORPHOLOGY REQUIRED (test NORMAL code = PLTMR) WBC [id number] 06:09:00 Test Item Value Reference Range Interpretation Comments SEGMENTED NEUTROPHILS (test code = SEG) % 56.5-79.4 LYMPHOCYTE (test code = LYMPH) % 20-40 [id number] 05:42:00 Test Item Value Reference Range Interpretation Comments GLUBED (test code = GLUBED) 101 mg/dL 65-110 N - XR CHEST 2 [id number] 00:00:00 [facility] 1985 Sex: F Patient Name: MARGARET GERBER Unit No: [id number] EXAMS: CPT CODE: [id number] XR CHEST 2 V 11701 PROCEDURE INFORMATION: Exam: XR Chest Exam date and time: 05/20/2021 12:41 AM Age: 36 years old Clinical indication: Other: Hypoxia, covid; Additional info: Covid, hypoxia TECHNIQUE: Imaging protocol: XR of the chest. Views: 2 views. PA and Lateral COMPARISON: No relevant prior studies available. FINDINGS: Lungs: Bilateral streaky and hazy airspace opacities more prominent in the right perihilar region and left lung base. Pleural spaces: Nopleural effusion or pneumothorax. Heart/Mediastinum: No cardiomegaly. Midline trachea. Bones/joints: No acute abnormalities. IMPRESSION: Bilateral airspace opacities compatible with viral pneumonia. at 0800 Reported and signed by: Cem Schwartz MD CC: Jw Ivy; Arlene Eldridge MD Technologist: RT Zena Trnscrbd D/ (0800) GCD.CPS Orig Print D/T: S: 05/20/2021 (0801) [facility] NAME: GERBER,JESSICARadiology Department PHYS: Jw Griffin MD [address] : 1985 AGE: 36 SEX: F [place], [place] [address] LOC: [id number] A PHONE #: [phone] EXAM DATE: 05/19/2021 STATUS: ADM IN FAX #: [phone] RAD NO: Page 1 Signed ReportCOMPREHENSIVE METABOLIC [id number] 13:09:00 Test Item Value Reference Range Interpretation Comments SODIUM (test code = NA) 136 mEq/L 135-145 N POTASSIUM (test code = K) 3.3 mEq/L 3.5-5.0 L CHLORIDE (test code = CL) 102 mEq/L 100-115 N CARBON DIOXIDE (test code = CO2) 20 mEq/L 22-31 L ANION GAP (test code = GAP) 17.80 10-20 N GLUCOSE (test code = GLU) 162 mg/dL 65-110 H BLOOD UREA NITROGEN (test code = 8 mg/dL 7-18 N BUN) GLOMERULAR FILTRATION RATE (test 82 ml/min >60 N code = GFR) CREATININE (test code = CREAT) 0.8 mg/dL 0.5-1.0 N TOTAL PROTEIN (test code = PROT) 7.1 gm/dL 6.3-8.2 N ALBUMIN (test code = ALB) 2.5 gm/dL 3.4-4.8 L CALCIUM (test code = CA) 8.4 mg/dL 8.4-10.2 N BILIRUBIN TOTAL (test code = 0.5 mg/dL 0.2-1.0 N BILT) SGOT/AST (test code = AST) 19 units/L 15-37 N SGPT/ALT (test code = ALT) 22 units/L 12-78 N ALKALINE PHOSPHATASE TOTAL (test 164 units/L 46-116 H code = ALKP) CBC W/AUTO [id number] 12:51:00 Test Item Value Reference Range Interpretation Comments WHITE BLOOD CELL (test code = WBC) 8.0 K/mm3 6.5-12.3 N RED BLOOD CELL (test code = RBC) 4.46 M/mm3 3.51-4.69 N HEMOGLOBIN (test code = HGB) 13.5 g/dL 10.1-13.8 N HEMATOCRIT (test code = HCT) 40.2 % 32.5-41.8 N MEAN CELL VOLUME (test code = MCV) 90.1 fL 84.6-96.6 N MEAN CELL HGB (test code = MCH) 30.3 pg 27.3-33.9 N MEAN CELL HGB CONCETRATION (test 33.6 gm/dL 32.0-34.2 N code = MCHC) RED CELL DISTRIBUTION WIDTH (test 13.7 % 12.2-16.3 N code = RDW) PLATELET COUNT (test code = PLT) 204 K/mm3 134-363 N MEAN PLATELET VOLUME (test code = 10.4 fL 9.2-12.7 N MPV) NEUTROPHIL % (test code = NT%) 82.4 % 57.9-77.3 H LYMPHOCYTE % (test code = LY%) 13.4 % 14.5-29.7 L MONOCYTE % (test code = MO%) 3.5 % 3.6-10.2 L EOSINOPHIL % (test code = EO%) 0.0 % 0.0-3.0 N BASOPHIL % (test code = BA%) 0.1 % 0.1-0.9 N NEUTROPHIL # (test code = NT#) 6.6 K/mm3 LYMPHOCYTE # (test code = LY#) 1.1 K/mm3 MONOCYTE # (test code = MO#) 0.3 K/mm3 EOSINOPHIL # (test code = EO#) 0 K/mm3 BASOPHIL # (test code = BA#) 0.0 K/mm3 RBC MORPHOLOGY REQUIRED (test code NORMAL NORMAL = RBCM) PLATELET MORPHOLOGY REQUIRED (test NORMAL NORMAL code = PLTMR) - US FET BIO PH IA W/O [id number] 00:00:00 [facility] : 1985 Sex: F Patient Name: MARGARET GERBER Unit No: [id number] EXAMS: CPT CODE: [id number] US FET BIO PH IA W/O NST 38924 PROCEDURE INFORMATION: Exam: US Biophysical Profile Without Non-Stress Test Exam date and time: 05/13/2021 7:19 PM Age: 36 years old Clinical indication: status abnormalities: Hypertension. Diabetes. COVID-19. movements, decreased; Single gestation; Third trimester (28 wks 0 days until delivery); ; Prior surgery; Surgery type: Prior c/s; Additional info: 33wk, decreased movement, HX of oligo last baby TECHNIQUE: Imaging protocol: US biophysical profile without non-stress testing. COMPARISON: US FET BIO PH IA W/O NST 11/16/2016 2:48 PM FINDINGS: Gestation: Single live intrauterine identified currently in cephalic position with heart tones 129 bpm. Anterior grade 2 placenta is seen without evidence for previa on these images. Amniotic fluid index measures 12.7 cm. Cervix measures 3.3 cm in length. The maternal right ovary is obscured by overlying gas. The left ovary measures 4.5 x3.3 x 3.6 containing cyst measuring up to 2.6 cm. BIOPHYSICAL PROFILE: Breathin/2 Gross body movements: 2/2 tone: 2/2 Qualitative amniotic fluid: 2/2 Biophysical Profile Score: 8/8 IMPRESSION: Biophysical profile score of 8/8. at 2128 Reported and signed by: Orlando Momin MD CC: Rosita Hernandez MD; Arlene Eldridge MD Technologist: Chica Bailey RDMS Probe: Trnscrbd D/ (2127) GCD.CPS Orig Print D/T: S: 05/13/2021 (2127) [facility] NAME: MARGARET GERBER Radiology Department PHYS: Norma Bennettlisa García [address] : 1985 AGE: 36 SEX: F [place] [address] LOC: ElianaSTEVENSON PHONE #: [phone] EXAM DATE: 05/13/2021TATUS: REG ER FAX #: [phone] RAD NO: Page 1 Signed Report Patient Name: MARGARET GERBER Unit No: [id number] EXAMS: CPT CODE: [id number] [facility] BIO PH IA W/O NST 50728 <Continued> [facility] NAME: MARGARET GERBER Radiology Department PHYS: WAYLON MelendrezmeredithRosita kirkland Raquel [address] : 1985 AGE: 36 SEX: F [place] [address] LOC: ElianaSTEVENSON PHONE #: [phone] EXAM DATE: 05/13/2021 STATUS: REG ER FAX#: [phone] RAD NO: Page 2 Signed [id number] 13:53:00 Test Item Value Reference Range Interpretation Comments Urine volume (test code 1.25 L/d 0.5-4.0 = 3654) Supersaturation CaOx 6-10 (test code = 3655) Urine calcium (test 180 mg/d See_Comment [Automa ty code = 3656) message] The system which generated this result transmit ty reference range : <=200. The reference range was not used to interpret this result as normal/abnormal . Urine oxalate (test 33 mg/d 20-40 code = 3657) Urine citrate (test 531 mg/d See_Comment A [Automa ty code = 3658) message] The system which generated this result transmit ty reference range : >=550. The reference range was not used to interpret this result as normal/abnormal . Supersaturation CaP 0.5-2.0 (test code = 3659) 24 hour urine pH (test 5.8-6.2 A code = 3660) Supersaturation uric 0-1 A acid (test code = 3661) Urine uric acid (test 0.719 g/d See_Comment [Auto mated code = 3662) message] The system which generated this result transmit ty reference range : <=0.750. The reference range was not used to interpret this result as normal/abnormal . Urine sodium (test code 258 mmol/d 50-150 A = 3663) Urine potassium (test 65 mmol/d 20-100 code = 3664) Urine magnesium (test 62 mg/d 30-120 code = 3665) Urine phosphorus (test 1.029 g/d 0.6-1.2 code = 3666) Urine ammonia (test 45 mmol/d 15-60 code = 3667) Urine chloride (test 276 mmol/d 70-250 A code = 3668) Urine sulfate (test 45 meq/d 20-80 code = 3669) Urine urea nitrogen 11.03 g/d 6-14 (test code = 3670) Protein catabolic rate 0.9 g/kg/d 0.8-1.4 (test code = 3671) Urine creatinine (test 1478 mg/d code = 3672) Creatinine/Kg Body 15.9 mg/kg/d 15-20 Weight (test code = 3673) Calcium/Kg Body Weight 1.9 mg/kg/d See_Comment [Aut omated (test code = 3674) message] The system which generated this result transmit ty reference range : <=4.00. The reference range was not used to interpret this result as normal/abnormal . Calcium/creatinine 122 mg/g See_Comment [Automat ed ratio (test code = message] The 3675) system which generated this result transmit ty reference range : <=140. The reference range was not used to interpret this result as normal/abnormal . Lab Interpretation Abnormal (test code = 43319-2) [facility] urinalysis [id number] 16:31:00 Test Item Value Reference Range Interpretation Comments Color urine, POC (test Yellow code = 3346576) Clarity urine, POC (test Clear code = 5100182) Glucose urine, POC (test Negative Negative code = 6006678) Bilirubin urine, POC Negative Negative (test code = 1621909) Ketones urine, POC (test Trace Negative A code = 3799483) Specific gravity urine, 1.005-1.030 POC (test code = 3346652) Blood urine, POC (test Small Negative A code = 3291797) pH urine, POC (test code See_Comment [A utomated message] = 3891304) The system [email or web address] generated this result transmitted ref erence range: 5.0, 5.5 , 6.0, 6.5, 7.0, 7.5, 8.0, 8.5. The refere nce range was not u sed to interpret this result as normal/abnor mal. Protein urine, POC (test Trace Negative A code = 4940089) Urobilinogen urine, POC <2.0 <2.0 (test code = 0462609) Nitrite urine, POC (test Negative Negative code = 1938025) Leukocyte esterase Negative Negative urine, POC (test code = 7370473) Lab Interpretation (test Abnormal code = 33001-0) [facility] W Auto Differential panel - [id number] 07:27:00 Test Item Value Reference Range Interpretation Comments white blood count (test code = 5.9 K/uL 4.0-11.5 white blood count) red blood count (test code = red 3.97 M/uL 3.80-5.20 blood count) hemoglobin (test code = 12.1 g/dL 10.5-15.7 hemoglobin) hematocrit (test code = 36.7 % 34.0-50.0 hematocrit) MCV [Entitic volume] (test code = 92.4 fL 86-100 47536-1) mean corpuscular hemoglobin (test 30.5 pg 26.2-33.4 code = mean corpuscular hemoglobin) mean corpuscular HGB conc (test 33.0 g/dL 30-34 code = mean corpuscular HGB conc) red cell distribution width (test 12.7 % 12.0-15.5 code = red cell distribution width) platelet count (test code = 236 K/uL 165-450 platelet count) mean platelet volume (test code = 10.3 fL 9.4-12.6 mean platelet volume) Segmented neutrophils/100 64.7 % 44.4-80.1 leukocytes in Blood (test code = 20429-2) Immature granulocytes [#/volume] 0.0 K/uL 0.0-0.03 in Blood (test code = 99403-4) lymphocyte% (test code = 25.3 % 10.0-50.0 lymphocyte%) mono % (test code = mono %) 8.3 % 3.6-12.0 eos % (test code = eos %) 0.7 % 0.0-5.4 Basophils/100 leukocytes in 0.7 % 0.1-1.2 Unspecified specimen (test code = 30251-7) Band form neutrophils [#/volume] 3.84 K/uL 1.56-6.13 in Blood (test code = 35280-3) Lymphocytes [#/volume] in 1.5 K/uL 1.18-3.74 Unspecified specimen by Automated count (test code = 39440-5) mono # (test code = mono #) 0.49 K/uL 0.24-0.86 eos # (test code = eos #) 0.04 K/uL 0.04-0.36 basophil # (test code = basophil 0.04 K/uL 0.01-0.08 #) NRBC% (test code = NRBC%) 0 /100 WBC 0-0.2 NRBC# (test code = NRBC#) 0 K/uL [facility] unspecified - [id number] 07:27:00NeutrophilsBandLymphocyteAtypical LymphMonocyteEosinophilBasophilNucleated Red Blood CellPlatelet EstimatePlatelet MorphologyAnisocytosisMacrocytosisStomatocyteHypersegmented PolysSmudge Cells [facility] 2000 panel - Serum or [id number] 07:27:00 Test Item Value Reference Range Interpretation Comments glucose (test code = glucose) 224 mg/dL 74-106 H Urea nitrogen [Mass/volume] in 5 mg/dL 6-20 L Serum or Plasma (test code = 3094-0) osmolality calculated,serum (test 274 mOsm/kg 280-300 L code = osmolality calculated,serum) creatinine (test code = 0.6 mg/dL 0.50-0.90 creatinine) glomerular filtration rate (test >60.00 code = glomerular filtration rate) Urea nitrogen/Creatinine [Mass 8.3 12-20 L Ratio] in Serum or Plasma (test code = 3097-3) sodium level (test code = sodium 135 mmol/L 135-145 level) Potassium [Moles/volume] in Body 3.2 mmol/L 3.5-5.2 L fluid (test code = 2821-7) chloride level (test code = 104 mmol/L 98-108 chloride level) CO2 (test code = CO2) 20 mmol/L 21-32 L anion gap (test code = anion gap) 14.2 mEq/L 12-20 calcium level (test code = 8.5 mg/dL 8.6-10.0 L calcium level) [facility]esium [Moles/volume] in Unspecified specimen 2020-06-11 03:10:00 Test Item Value Reference Range Interpretation Comments magnesium level (test code = 1.9 mg/dL 1.6-2.6 magnesium level) [facility] HospitalLactate [Mass/volume] in Serum or [id number] 03:10:00 Test Item Value Reference Range Interpretation Comments lactic acid (test code = lactic 0.86 mmol/L 0.5-2.2 acid) [facility] W Auto Differential panel - [id number] 03:10:00 Test Item Value Reference Range Interpretation Comments white blood count (test code = 8.0 K/uL 4.0-11.5 white blood count) red blood count (test code = red 3.56 M/uL 3.80-5.20 L blood count) hemoglobin (test code = 11.1 g/dL 10.5-15.7 hemoglobin) hematocrit (test code = 33.2 % 34.0-50.0 L hematocrit) MCV [Entitic volume] (test code = 93.3 fL 86-100 55721-2) mean corpuscular hemoglobin (test 31.2 pg 26.2-33.4 code = mean corpuscular hemoglobin) mean corpuscular HGB conc (test 33.4 g/dL 30-34 code = mean corpuscular HGB conc) red cell distribution width (test 12.8 % 12.0-15.5 code = red cell distribution width) platelet count (test code = 173 K/uL 165-450 platelet count) mean platelet volume (test code = 10.5 fL 9.4-12.6 mean platelet volume) Segmented neutrophils/100 71.8 % 44.4-80.1 leukocytes in Blood (test code = 32887-7) Immature granulocytes [#/volume] 0.1 K/uL 0.0-0.03 H in Blood (test code = 61460-4) lymphocyte% (test code = 16.6 % 10.0-50.0 lymphocyte%) mono % (test code = mono %) 9.4 % 3.6-12.0 eos % (test code = eos %) 1.2 % 0.0-5.4 Basophils/100 leukocytes in 0.4 % 0.1-1.2 Unspecified specimen (test code = 50476-6) Band form neutrophils [#/volume] 5.75 K/uL 1.56-6.13 in Blood (test code = 79207-8) Lymphocytes [#/volume] in 1.3 K/uL 1.18-3.74 Unspecified specimen by Automated count (test code = 94848-2) mono # (test code = mono #) 0.75 K/uL 0.24-0.86 eos # (test code = eos #) 0.10 K/uL 0.04-0.36 basophil # (test code = basophil 0.03 K/uL 0.01-0.08 #) NRBC% (test code = NRBC%) 0 /100 WBC 0-0.2 NRBC# (test code = NRBC#) 0 K/uL [facility] metabolic 2000 panel - Serum or [id number] 03:10:00 Test Item Value Reference Range Interpretation Comments Glucose [Mass/volume] in Serum or 147 mg/dL 74-106 H Plasma (test code = 2345-7) Urea nitrogen [Mass/volume] in 5 mg/dL 6-20 L Serum or Plasma (test code = 3094-0) osmolality calculated,serum (test 276 mOsm/kg 280-300 L code = osmolality calculated,serum) creatinine (test code = 0.6 mg/dL 0.50-0.90 creatinine) glomerular filtration rate (test >60.00 code = glomerular filtration rate) Urea nitrogen/Creatinine [Mass 8.3 12-20 L Ratio] in Serum or Plasma (test code = 3097-3) sodium level (test code = sodium 138 mmol/L 135-145 level) potassium level (test code = 3.4 mmol/L 3.5-5.2 L potassium level) chloride level (test code = 107 mmol/L 98-108 chloride level) CO2 (test code = CO2) 23 mmol/L 21-32 anion gap (test code = anion gap) 11.4 mEq/L 12-20 L calcium level (test code = 8.1 mg/dL 8.6-10.0 L calcium level) [facility] GroupUrinalysis complete panel - [id number] 00:00:00 Test Item Value Reference Range Interpretation Comments Color of Urine by Auto (test dark yellow code = 66389-3) Appearance of Urine (test code clear clear = 5767-9) Glucose [Presence] in Urine by negative negative Automated test strip (test code = 51997-4) Bilirubin.total [Mass/volume] negative negative in Urine (test code = 1978-6) Ketones [Mass/volume] in Urine =1 negative H by Automated test strip (test code = 81859-3) Specific gravity of Urine by 1.008 1.003-1.030 Automated test strip (test code = 56388-3) blood urine (test code = blood =2 negative H urine) pH of Urine (test code = 7.000 5-9 2756-5) protein urine (UA) (test code = negative negative protein urine (UA)) Urobilinogen [Presence] in normal 0.2-1.0 Urine (test code = 06278-7) Nitrite [Presence] in Urine by negative negative Test strip (test code = 5802-4) Leukocyte esterase [Presence] negative negative in Urine by Automated test strip (test code = 79145-4) Erythrocytes [#/volume] in =15-19 0-5 H Urine by Automated count (test code = 798-9) Leukocytes [#/area] in Urine =1-5 0-5 sediment by Automated count (test code = 34119-5) Epithelial cells [Presence] in =1-5 0-5 Urine sediment by Light microscopy (test code = 65273-0) Bacteria identified in Urine by none detected none detect Culture (test code = 630-4) Casts [#/area] in Urine none detected none detect sediment by Automated count (test code = 20383-2) urine culture added? (test code no = urine culture added?) [facility] 2000 [facility] - Serum or Plasma 2020-06-10 04:22:00 Test Item Value Reference Range Interpretation Comments Glucose [Mass/volume] in Serum or 167 mg/dL 74-106 H Plasma (test code = 2345-7) Urea nitrogen [Mass/volume] in 7 mg/dL 6-20 Serum or Plasma (test code = 3094-0) osmolality calculated,serum (test 272 mOsm/kg 280-300 L code = osmolality calculated,serum) creatinine (test code = 0.6 mg/dL 0.50-0.90 creatinine) glomerular filtration rate (test >60.00 code = glomerular filtration rate) Urea nitrogen/Creatinine [Mass 11.7 12-20 L Ratio] in Serum or Plasma (test code = 3097-3) sodium level (test code = sodium 135 mmol/L 135-145 level) potassium level (test code = 3.1 mmol/L 3.5-5.2 L potassium level) chloride level (test code = 104 mmol/L 98-108 chloride level) CO2 (test code = CO2) 19 mmol/L 21-32 L anion gap (test code = anion gap) 15.1 mEq/L 12-20 calcium level (test code = 7.9 mg/dL 8.6-10.0 L calcium level) total protein (test code = total 6.4 g/dL 6.6-8.7 L protein) albumin (test code = albumin) 3.5 g/dL 3.5-5.2 globulin (test code = globulin) 2.9 gm/dL A/G ratio (test code = A/G ratio) 1.2 >1.0 bilirubin,total (test code = 0.8 mg/dL 0.0-1.2 bilirubin,total) AST/SGOT (test code = AST/SGOT) 15 U/L 15-32 Alanine aminotransferase 24 U/L 0-33 [Enzymatic activity/volume] in Serum or Plasma (test code = 1742-6) Alkaline phosphatase [Enzymatic 65 U/L 35-105 activity/volume] in Serum or Plasma (test code = 6768-6) [facility] HospitalPhosphate [Mass/volume] in Serum or [id number] 04:22:00 Test Item Value Reference Range Interpretation Comments phosphorous level (test code = 2.5 mg/dL 2.5-4.5 phosphorous level) [facility] HospitalMagnesium [Moles/volume] in Unspecified specimen 2020-06-10 04:22:00 Test Item Value Reference Range Interpretation Comments magnesium level (test code = 1.2 mg/dL 1.6-2.6 L magnesium level) [facility] HospitalLactate [Mass/volume] in Serum or [id number] 04:22:00 Test Item Value Reference Range Interpretation Comments lactic acid (test code = lactic 2.04 mmol/L 0.5-2.2 acid) [facility] W Auto Differential panel - [id number] 04:22:00 Test Item Value Reference Range Interpretation Comments white blood count (test code = 13.5 K/uL 4.0-11.5 H white blood count) red blood count (test code = red 3.94 M/uL 3.80-5.20 blood count) hemoglobin (test code = 12.1 g/dL 10.5-15.7 hemoglobin) hematocrit (test code = 35.3 % 34.0-50.0 hematocrit) MCV [Entitic volume] (test code = 89.6 fL 86-100 85987-3) mean corpuscular hemoglobin (test 30.7 pg 26.2-33.4 code = mean corpuscular hemoglobin) mean corpuscular HGB conc (test 34.3 g/dL 30-34 H code = mean corpuscular HGB conc) red cell distribution width (test 12.3 % 12.0-15.5 code = red cell distribution width) platelet count (test code = 198 K/uL 165-450 platelet count) mean platelet volume (test code = 11.2 fL 9.4-12.6 mean platelet volume) Segmented neutrophils/100 84.5 % 44.4-80.1 H leukocytes in Blood (test code = 77627-0) Immature granulocytes [#/volume] 0.1 K/uL 0.0-0.03 H in Blood (test code = 58787-3) lymphocyte% (test code = 8.3 % 10.0-50.0 L lymphocyte%) mono % (test code = mono %) 6.3 % 3.6-12.0 eos % (test code = eos %) 0.1 % 0.0-5.4 Basophils/100 leukocytes in 0.4 % 0.1-1.2 Unspecified specimen (test code = 23551-8) Band form neutrophils [#/volume] 11.43 K/uL 1.56-6.13 H in Blood (test code = 90979-3) Lymphocytes [#/volume] in 1.1 K/uL 1.18-3.74 L Unspecified specimen by Automated count (test code = 13037-9) mono # (test code = mono #) 0.85 K/uL 0.24-0.86 eos # (test code = eos #) 0.01 K/uL 0.04-0.36 L basophil # (test code = basophil 0.05 K/uL 0.01-0.08 #) NRBC% (test code = NRBC%) 0 /100 WBC 0-0.2 NRBC# (test code = NRBC#) 0 K/uL [facility]Differential panel, method unspecified - [id number] 04:22:00NeutrophilsBandLymphocyteMonocytePlatelet EstimateMatagoSt. Dominic [id number] 04:22:00 Test Item Value Reference Range Interpretation Comments Procalcitonin [Mass/volume] in 1.0 NG/mL 0.0-0.8 H Serum or Plasma (test code = 50371-8) [facility] HospitalUrinalysis complete panel - [id number] 10:40:00 Test Item Value Reference Range Interpretation Comments Color of Urine by Auto (test code = yellow 40727-4) Appearance of Urine (test code = clear clear 5767-9) Glucose [Presence] in Urine by trace (50 negative Automated test strip (test code = 20377-1) Bilirubin.total [Mass/volume] in negative negative Urine (test code = 1978-6) Ketones [Mass/volume] in Urine by =2 negative H Automated test strip (test code = 59164-5) Specific gravity of Urine by 1.018 1.003-1.030 Automated test strip (test code = 58789-9) blood urine (test code = blood =2 negative H urine) pH of Urine (test code = 2756-5) 6.000 5-9 protein urine (UA) (test code = =3+ (300 negative H protein urine (UA)) Urobilinogen [Presence] in Urine normal 0.2-1.0 (test code = 33055-6) Nitrite [Presence] in Urine by Test negative negative strip (test code = 5802-4) Leukocyte esterase [Presence] in =3 negative H Urine by Automated test strip (test code = 44805-5) Erythrocytes [#/volume] in Urine by =30-49 0-5 H Automated count (test code = 798-9) Leukocytes [#/area] in Urine >50 0-5 H sediment by Automated count (test code = 06853-8) Epithelial cells [Presence] in =1-5 0-5 Urine sediment by Light microscopy (test code = 96015-4) Bacteria identified in Urine by tntc (4 none detect H Culture (test code = 630-4) Casts [#/area] in Urine sediment by none seen none detect Automated count (test code = 49349-1) urine culture added? (test code = yes urine culture added?) [facility] GroupBacteria identified in Urine by [id number] 10:40:00Bacteria Ur CultMatagorda Medical Groupantibiotic sensitivity testing, [id number] 10:40:00 Test Item Value Reference Range Interpretation Comments Gentamicin [Susceptibility] by >8 Minimum inhibitory concentration (VINOD) (test code = 267-5) Ampicillin [Susceptibility] by >16 Minimum inhibitory concentration (VINOD) (test code = 28-1) Trimethoprim+Sulfamethoxazole =2/38 [Susceptibility] by Minimum inhibitory concentration (VINOD) (test code = 516-5) Tetracycline [Susceptibility] by >8 Minimum inhibitory concentration (VINOD) (test code = 496-0) Amoxicillin+Clavulanate =8/4 [Susceptibility] by Minimum inhibitory concentration (VINOD) (test code = 20-8) Tobramycin [Susceptibility] by 8 ug/mL Minimum inhibitory concentration (VINOD) (test code = 508-2) Nitrofurantoin [Susceptibility] by <32 Minimum inhibitory concentration (VINOD) (test code = 363-2) Cefepime [Susceptibility] by Minimum >16 inhibitory concentration (VINOD) (test code = 6644-9) levoFLOXacin [Susceptibility] by <2 Minimum inhibitory concentration (VINOD) (test code = 05025-6) Piperacillin+Tazobactam <16 [Susceptibility] by Minimum inhibitory concentration (VINOD) (test code = 412-7) Ciprofloxacin [Susceptibility] by <1 Minimum inhibitory concentration (VINOD) (test code = 185-9) Imipenem [Susceptibility] by Minimum <1 inhibitory concentration (VINOD) (test code = 279-0) Ampicillin+Sulbactam [Susceptibility] =16/8 by Minimum inhibitory concentration (VINOD) (test code = 32-3) Ertapenem [Susceptibility] by Minimum <0.5 inhibitory concentration (VINOD) (test code = 87353-2) Cefuroxime [Susceptibility] by >16 Minimum inhibitory concentration (VINOD) (test code = 24891-6) [facility] test, [id number] 10:20:00 Test Item Value Reference Range Interpretation Comments Choriogonadotropin ( test) negative neg [Presence] in Urine (test code = 2106-3) [facility] W Auto Differential panel - [id number] 09:58:00 Test Item Value Reference Range Interpretation Comments white blood count (test code = 11.3 K/uL 4.0-11.5 white blood count) red blood count (test code = red 4.91 M/uL 3.80-5.20 blood count) hemoglobin (test code = 15.2 g/dL 10.5-15.7 hemoglobin) hematocrit (test code = 44.4 % 34.0-50.0 hematocrit) MCV [Entitic volume] (test code = 90.4 fL 86-100 56173-1) mean corpuscular hemoglobin (test 31.0 pg 26.2-33.4 code = mean corpuscular hemoglobin) mean corpuscular HGB conc (test 34.2 g/dL 30-34 H code = mean corpuscular HGB conc) red cell distribution width (test 12.1 % 12.0-15.5 code = red cell distribution width) platelet count (test code = 232 K/uL 165-450 platelet count) mean platelet volume (test code = 10.7 fL 9.4-12.6 mean platelet volume) Segmented neutrophils/100 86.8 % 44.4-80.1 H leukocytes in Blood (test code = 66831-2) Immature granulocytes [#/volume] 0.0 K/uL 0.0-0.03 in Blood (test code = 08620-1) lymphocyte% (test code = 8.0 % 10.0-50.0 L lymphocyte%) mono % (test code = mono %) 4.1 % 3.6-12.0 eos % (test code = eos %) 0.3 % 0.0-5.4 Basophils/100 leukocytes in 0.4 % 0.1-1.2 Unspecified specimen (test code = 13954-1) Band form neutrophils [#/volume] 9.85 K/uL 1.56-6.13 H in Blood (test code = 27530-9) Lymphocytes [#/volume] in 0.9 K/uL 1.18-3.74 L Unspecified specimen by Automated count (test code = 07276-1) mono # (test code = mono #) 0.46 K/uL 0.24-0.86 eos # (test code = eos #) 0.03 K/uL 0.04-0.36 L basophil # (test code = basophil 0.05 K/uL 0.01-0.08 #) NRBC% (test code = NRBC%) 0 /100 WBC 0-0.2 NRBC# (test code = NRBC#) 0 K/uL [facility] GroupDifferential panel, method unspecified - [id number] 09:58:00NeutrophilsBandLymphocyteAtypical LymphMonocyteEosinophilBasophilNucleated Red Blood CellDifferential CommentPlatelet EstimatePlatelet MorphologyMicrocytosisMacrocytosisToxic GranulationToxic VacuolationLaird HospitalLactate [Mass/volume] in Serum or [id number] 09:58:00 Test Item Value Reference Range Interpretation Comments lactic acid (test code = lactic 3.83 mmol/L 0.5-2.2 H acid) [facility] 2000 panel - Serum or Plasma 2020-06-09 09:58:00 Test Item Value Reference Range Interpretation Comments Glucose [Mass/volume] in Serum or 165 mg/dL 74-106 H Plasma (test code = 2345-7) Urea nitrogen [Mass/volume] in 10 mg/dL 6-20 Serum or Plasma (test code = 3094-0) osmolality calculated,serum (test 271 mOsm/kg 280-300 L code = osmolality calculated,serum) creatinine (test code = 0.7 mg/dL 0.50-0.90 creatinine) glomerular filtration rate (test >60.00 code = glomerular filtration rate) Urea nitrogen/Creatinine [Mass 14.3 12-20 Ratio] in Serum or Plasma (test code = 3097-3) sodium level (test code = sodium 134 mmol/L 135-145 L level) potassium level (test code = 3.7 mmol/L 3.5-5.2 potassium level) chloride level (test code = 98 mmol/L 98-108 chloride level) CO2 (test code = CO2) 20 mmol/L 21-32 L anion gap (test code = anion gap) 19.7 mEq/L 12-20 calcium level (test code = 9.8 mg/dL 8.6-10.0 calcium level) total protein (test code = total 8.0 g/dL 6.6-8.7 protein) albumin (test code = albumin) 4.6 g/dL 3.5-5.2 globulin (test code = globulin) 3.4 gm/dL A/G ratio (test code = A/G ratio) 1.4 >1.0 bilirubin,total (test code = 0.8 mg/dL 0.0-1.2 bilirubin,total) AST/SGOT (test code = AST/SGOT) 30 U/L 15-32 Alanine aminotransferase 34 U/L 0-33 H [Enzymatic activity/volume] in Serum or Plasma (test code = 1742-6) Alkaline phosphatase [Enzymatic 88 U/L 35-105 activity/volume] in Serum or Plasma (test code = 6768-6) [facility]] in Serum or Plasma 2020-06-09 09:58:00 Test Item Value Reference Range Interpretation Comments lipase (test code = lipase) 13 U/L 13-60 [facility] Ref[facility] Culture panel - Urine 2020-05-13 09:02:00 Test Item Value Reference Range Interpretation Comments Color of Urine by Auto (test code = yellow 11651-5) Appearance of Urine (test code = SL cloudy clear A 5767-9) Glucose [Presence] in Urine by =4+ (1000 negative H Automated test strip (test code = 01927-2) Bilirubin.total [Mass/volume] in negative negative Urine (test code = 1978-6) Ketones [Mass/volume] in Urine by =1 negative H Automated test strip (test code = 41867-9) Specific gravity of Urine by 1.028 1.003-1.030 Automated test strip (test code = 22131-6) blood urine (test code = blood =3 negative H urine) pH of Urine (test code = 2756-5) 5.500 5-9 protein urine (UA) (test code = =2+ (100 negative H protein urine (UA)) Urobilinogen [Presence] in Urine normal 0.2-1.0 (test code = 25578-7) Nitrite [Presence] in Urine by Test negative negative strip (test code = 5802-4) Leukocyte esterase [Presence] in =1 negative H Urine by Automated test strip (test code = 86053-1) Erythrocytes [#/volume] in Urine by >50 0-5 H Automated count (test code = 798-9) Leukocytes [#/area] in Urine =6-10 0-5 H sediment by Automated count (test code = 86165-3) Epithelial cells [Presence] in =6-10 0-5 Urine sediment by Light microscopy (test code = 78660-0) Bacteria identified in Urine by large (3 none detect H Culture (test code = 630-4) Casts [#/area] in Urine sediment by =2-5 none detect Automated count (test code = 25786-2) urine culture added? (test code = yes urine culture added?) [facility] Urine by [id number] 09:02:00[facility], [id number] 09:02:00 Test Item Value Reference Range Interpretation Comments Gentamicin [Susceptibility] by Minimum <2 inhibitory concentration (VINOD) (test code = 267-5) Ampicillin [Susceptibility] by Minimum <8 inhibitory concentration (VINOD) (test code = 28-1) ceFAZolin [Susceptibility] by Minimum <2 inhibitory concentration (VINOD) (test code = 76-0) Trimethoprim+Sulfamethoxazole =2/38 [Susceptibility] by Minimum inhibitory concentration (VINOD) (test code = 516-5) Tetracycline [Susceptibility] by <4 Minimum inhibitory concentration (VINOD) (test code = 496-0) Amoxicillin+Clavulanate =8/4 [Susceptibility] by Minimum inhibitory concentration (VINOD) (test code = 20-8) Tobramycin [Susceptibility] by Minimum <4 inhibitory concentration (VINOD) (test code = 508-2) Nitrofurantoin [Susceptibility] by <32 Minimum inhibitory concentration (VINOD) (test code = 363-2) Cefotaxime [Susceptibility] by Minimum <2 inhibitory concentration (VINOD) (test code = 108-1) Cefepime [Susceptibility] by Minimum <8 inhibitory concentration (VINOD) (test code = 6644-9) levoFLOXacin [Susceptibility] by <2 Minimum inhibitory concentration (VINOD) (test code = 22500-0) Piperacillin+Tazobactam <16 [Susceptibility] by Minimum inhibitory concentration (VINOD) (test code = 412-7) cefTAZidime [Susceptibility] by Minimum <1 inhibitory concentration (VINOD) (test code = 133-9) cefTRIAXone [Susceptibility] by Minimum <1 inhibitory concentration (VINOD) (test code = 141-2) Ciprofloxacin [Susceptibility] by <1 Minimum inhibitory concentration (VINOD) (test code = 185-9) Imipenem [Susceptibility] by Minimum <1 inhibitory concentration (VINOD) (test code = 279-0) Ampicillin+Sulbactam [Susceptibility] =8/4 by Minimum inhibitory concentration (VINOD) (test code = 32-3) Ertapenem [Susceptibility] by Minimum <0.5 inhibitory concentration (VINOD) (test code = 31924-7) Aztreonam [Susceptibility] by Minimum <4 inhibitory concentration (VINOD) (test code = 44-8) Cefuroxime [Susceptibility] by Minimum <4 inhibitory concentration (VINOD) (test code = 09983-1) [facility] Reflex Culture panel - Urine 2020-05-13 09:02:00 Test Item Value Reference Range Interpretation Comments Color of Urine by Auto (test code = yellow 75398-4) Appearance of Urine (test code = SL cloudy clear A 5767-9) Glucose [Presence] in Urine by =4+ (1000 negative H Automated test strip (test code = 01178-6) Bilirubin.total [Mass/volume] in negative negative Urine (test code = 1978-6) Ketones [Mass/volume] in Urine by =1 negative H Automated test strip (test code = 98041-5) Specific gravity of Urine by 1.028 1.003-1.030 Automated test strip (test code = 89014-3) blood urine (test code = blood =3 negative H urine) pH of Urine (test code = 2756-5) 5.500 5-9 protein urine (UA) (test code = =2+ (100 negative H protein urine (UA)) Urobilinogen [Presence] in Urine normal 0.2-1.0 (test code = 37698-1) Nitrite [Presence] in Urine by Test negative negative strip (test code = 5802-4) Leukocyte esterase [Presence] in =1 negative H Urine by Automated test strip (test code = 67707-8) Erythrocytes [#/volume] in Urine by >50 0-5 H Automated count (test code = 798-9) Leukocytes [#/area] in Urine =6-10 0-5 H sediment by Automated count (test code = 41298-6) Epithelial cells [Presence] in =6-10 0-5 Urine sediment by Light microscopy (test code = 94477-1) Bacteria identified in Urine by large (3 none detect H Culture (test code = 630-4) Casts [#/area] in Urine sediment by =2-5 none detect Automated count (test code = 68297-1) urine culture added? (test code = yes urine culture added?) [facility]Bacteria identified in Urine by [id number] 09:02:00[facility]antib[facility] testing, [id number] 09:02:00 Test Item Value Reference Range Interpretation Comments Gentamicin [Susceptibility] by Minimum <2 inhibitory concentration (VINOD) (test code = 267-5) Ampicillin [Susceptibility] by Minimum <8 inhibitory concentration (VINOD) (test code = 28-1) ceFAZolin [Susceptibility] by Minimum <2 inhibitory concentration (VINOD) (test code = 76-0) Trimethoprim+Sulfamethoxazole =2/38 [Susceptibility] by Minimum inhibitory concentration (VINOD) (test code = 516-5) Tetracycline [Susceptibility] by <4 Minimum inhibitory concentration (VINOD) (test code = 496-0) Amoxicillin+Clavulanate =8/4 [Susceptibility] by Minimum inhibitory concentration (VINOD) (test code = 20-8) Tobramycin [Susceptibility] by Minimum <4 inhibitory concentration (VINOD) (test code = 508-2) Nitrofurantoin [Susceptibility] by <32 Minimum inhibitory concentration (VINOD) (test code = 363-2) Cefotaxime [Susceptibility] by Minimum <2 inhibitory concentration (VINOD) (test code = 108-1) Cefepime [Susceptibility] by Minimum <8 inhibitory concentration (VINOD) (test code = 6644-9) levoFLOXacin [Susceptibility] by <2 Minimum inhibitory concentration (VINOD) (test code = 52015-7) Piperacillin+Tazobactam <16 [Susceptibility] by Minimum inhibitory concentration (VINOD) (test code = 412-7) cefTAZidime [Susceptibility] by Minimum <1 inhibitory concentration (VINOD) (test code = 133-9) cefTRIAXone [Susceptibility] by Minimum <1 inhibitory concentration (VINOD) (test code = 141-2) Ciprofloxacin [Susceptibility] by <1 Minimum inhibitory concentration (VINOD) (test code = 185-9) Imipenem [Susceptibility] by Minimum <1 inhibitory concentration (VINOD) (test code = 279-0) Ampicillin+Sulbactam [Susceptibility] =8/4 by Minimum inhibitory concentration (VINOD) (test code = 32-3) Ertapenem [Susceptibility] by Minimum <0.5 inhibitory concentration (VINOD) (test code = 41444-0) Aztreonam [Susceptibility] by Minimum <4 inhibitory concentration (VINOD) (test code = 44-8) Cefuroxime [Susceptibility] by Minimum <4 inhibitory concentration (VINOD) (test code = 02369-0) [facility] HospitalUrinalysis macro (dipstick) panel - [id number] 11:00:00 Test Item Value Reference Range Interpretation Comments Leukocytes (test code = Trace Leukocytes) Nitrite (test code = Nitrite) negative Urobilinogen (test code = .2 Urobilinogen) Protein (test code = Protein) 300 pH (test code = pH) 6.0 Blood (test code = Blood) Large Specific Ramona (test code = 1.030 Specific Ramona) Ketone (test code = Ketone) Moderate Bilirubin (test code = Bilirubin) Negative Glucose (test code = Glucose) 250 Appearance (test code = Cloudy Appearance) Color (test code = Color) Dark Yellow [facility]Urinalysis macro (dipstick) panel - [id number] 11:00:00 Test Item Value Reference Range Interpretation Comments Leukocytes (test code = Trace Leukocytes) Nitrite (test code = Nitrite) negative Urobilinogen (test code = .2 Urobilinogen) Protein (test code = Protein) 300 pH (test code = pH) 6.0 Blood (test code = Blood) Large Specific Ramona (test code = 1.030 Specific Ramona) Ketone (test code = Ketone) Moderate Bilirubin (test code = Bilirubin) Negative Glucose (test code = Glucose) 250 Appearance (test code = Cloudy Appearance) Color (test code = Color) Dark Yellow [facility]CB W Auto Differential panel - [id number] 10:43:00 Test Item Value Reference Range Interpretation Comments white blood count (test code = 12.4 K/uL 4.0-11.5 H white blood count) red blood count (test code = red 4.94 M/uL 3.80-5.20 blood count) hemoglobin (test code = 15.4 g/dL 10.5-15.7 hemoglobin) hematocrit (test code = 43.9 % 34.0-50.0 hematocrit) MCV [Entitic volume] (test code = 88.9 fL 86-100 04185-6) mean corpuscular hemoglobin (test 31.2 pg 26.2-33.4 code = mean corpuscular hemoglobin) mean corpuscular HGB conc (test 35.1 g/dL 30-34 H code = mean corpuscular HGB conc) red cell distribution width (test 12.4 % 12.0-15.5 code = red cell distribution width) platelet count (test code = 268 K/uL 165-450 platelet count) mean platelet volume (test code = 11.0 fL 9.4-12.6 mean platelet volume) Segmented neutrophils/100 71.0 % 44.4-80.1 leukocytes in Blood (test code = 87922-2) Immature granulocytes [#/volume] 0.0 K/uL 0.0-0.03 in Blood (test code = 84153-2) lymphocyte% (test code = 19.9 % 10.0-50.0 lymphocyte%) mono % (test code = mono %) 6.5 % 3.6-12.0 eos % (test code = eos %) 1.8 % 0.0-5.4 Basophils/100 leukocytes in 0.6 % 0.1-1.2 Unspecified specimen (test code = 03224-0) Band form neutrophils [#/volume] 8.82 K/uL 1.56-6.13 H in Blood (test code = 83476-6) Lymphocytes [#/volume] in 2.5 K/uL 1.18-3.74 Unspecified specimen by Automated count (test code = 53277-4) mono # (test code = mono #) 0.81 K/uL 0.24-0.86 eos # (test code = eos #) 0.23 K/uL 0.04-0.36 basophil # (test code = basophil 0.08 K/uL 0.01-0.08 #) NRBC% (test code = NRBC%) 0 /100 WBC 0-0.2 NRBC# (test code = NRBC#) 0 K/uL [facility]Differential panel, method unspecified - [id number] 10:43:00NeutrophilsBandLymphocyteEosinophilPlatelet EstimateMataH. C. Watkins Memorial HospitalComprehensive metabolic 2000 panel - Serum or [id number] 10:43:00 Test Item Value Reference Range Interpretation Comments glucose (test code = glucose) 195 mg/dL 74-106 H Urea nitrogen [Mass/volume] in 13 mg/dL 6-20 Serum or Plasma (test code = 3094-0) osmolality calculated,serum (test 274 mOsm/kg 280-300 L code = osmolality calculated,serum) creatinine (test code = 0.7 mg/dL 0.50-0.90 creatinine) glomerular filtration rate (test >60.00 code = glomerular filtration rate) Urea nitrogen/Creatinine [Mass 18.6 12-20 Ratio] in Serum or Plasma (test code = 3097-3) sodium level (test code = sodium 134 mmol/L 135-145 L level) Potassium [Moles/volume] in Body 4.0 mmol/L 3.5-5.2 fluid (test code = 2821-7) chloride level (test code = 101 mmol/L 98-108 chloride level) CO2 (test code = CO2) 17 mmol/L 21-32 L anion gap (test code = anion gap) 20.0 mEq/L 12-20 calcium level (test code = 9.5 mg/dL 8.6-10.0 calcium level) total protein (test code = total 7.4 g/dL 6.6-8.7 protein) albumin (test code = albumin) 4.5 g/dL 3.5-5.2 globulin (test code = globulin) 2.9 gm/dL A/G ratio (test code = A/G ratio) 1.6 >1.0 bilirubin,total (test code = 0.3 mg/dL 0.0-1.2 bilirubin,total) AST/SGOT (test code = AST/SGOT) 27 U/L 15-32 Alanine aminotransferase 39 U/L 0-33 H [Enzymatic activity/volume] in Serum or Plasma (test code = 1742-6) Alkaline phosphatase [Enzymatic 66 U/L 35-105 activity/volume] in Serum or Plasma (test code = 6768-6) [facility] W Auto Differential panel - [id number] 10:43:00 Test Item Value Reference Range Interpretation Comments white blood count (test code = 12.4 K/uL 4.0-11.5 H white blood count) red blood count (test code = red 4.94 M/uL 3.80-5.20 blood count) hemoglobin (test code = 15.4 g/dL 10.5-15.7 hemoglobin) hematocrit (test code = 43.9 % 34.0-50.0 hematocrit) MCV [Entitic volume] (test code = 88.9 fL 86-100 73587-0) mean corpuscular hemoglobin (test 31.2 pg 26.2-33.4 code = mean corpuscular hemoglobin) mean corpuscular HGB conc (test 35.1 g/dL 30-34 H code = mean corpuscular HGB conc) red cell distribution width (test 12.4 % 12.0-15.5 code = red cell distribution width) platelet count (test code = 268 K/uL 165-450 platelet count) mean platelet volume (test code = 11.0 fL 9.4-12.6 mean platelet volume) Segmented neutrophils/100 71.0 % 44.4-80.1 leukocytes in Blood (test code = 58255-1) Immature granulocytes [#/volume] 0.0 K/uL 0.0-0.03 in Blood (test code = 53591-3) lymphocyte% (test code = 19.9 % 10.0-50.0 lymphocyte%) mono % (test code = mono %) 6.5 % 3.6-12.0 eos % (test code = eos %) 1.8 % 0.0-5.4 Basophils/100 leukocytes in 0.6 % 0.1-1.2 Unspecified specimen (test code = 57024-6) Band form neutrophils [#/volume] 8.82 K/uL 1.56-6.13 H in Blood (test code = 94396-4) Lymphocytes [#/volume] in 2.5 K/uL 1.18-3.74 Unspecified specimen by Automated count (test code = 54349-4) mono # (test code = mono #) 0.81 K/uL 0.24-0.86 eos # (test code = eos #) 0.23 K/uL 0.04-0.36 basophil # (test code = basophil 0.08 K/uL 0.01-0.08 #) NRBC% (test code = NRBC%) 0 /100 WBC 0-0.2 NRBC# (test code = NRBC#) 0 K/uL [facility]Differential panel, method unspecified - [id number] 10:43:00NeutrophilsBandLymphocyteEosinophilPlatelet EstimateLaird HospitalComprehensive metabolic 2000 panel - Serum or [id number] 10:43:00 Test Item Value Reference Range Interpretation Comments glucose (test code = glucose) 195 mg/dL 74-106 H Urea nitrogen [Mass/volume] in 13 mg/dL 6-20 Serum or Plasma (test code = 3094-0) osmolality calculated,serum (test 274 mOsm/kg 280-300 L code = osmolality calculated,serum) creatinine (test code = 0.7 mg/dL 0.50-0.90 creatinine) glomerular filtration rate (test >60.00 code = glomerular filtration rate) Urea nitrogen/Creatinine [Mass 18.6 12-20 Ratio] in Serum or Plasma (test code = 3097-3) sodium level (test code = sodium 134 mmol/L 135-145 L level) Potassium [Moles/volume] in Body 4.0 mmol/L 3.5-5.2 fluid (test code = 2821-7) chloride level (test code = 101 mmol/L 98-108 chloride level) CO2 (test code = CO2) 17 mmol/L 21-32 L anion gap (test code = anion gap) 20.0 mEq/L 12-20 calcium level (test code = 9.5 mg/dL 8.6-10.0 calcium level) total protein (test code = total 7.4 g/dL 6.6-8.7 protein) albumin (test code = albumin) 4.5 g/dL 3.5-5.2 globulin (test code = globulin) 2.9 gm/dL A/G ratio (test code = A/G ratio) 1.6 >1.0 bilirubin,total (test code = 0.3 mg/dL 0.0-1.2 bilirubin,total) AST/SGOT (test code = AST/SGOT) 27 U/L 15-32 Alanine aminotransferase 39 U/L 0-33 H [Enzymatic activity/volume] in Serum or Plasma (test code = 1742-6) Alkaline phosphatase [Enzymatic 66 U/L 35-105 activity/volume] in Serum or Plasma (test code = 6768-6) [facility]
== END 2021-08-16 21:07 ==
LOC: ER 13:57
DX: R10.32 Left lower quadrant pain (principal); R19.04 Left lower quadrant abdominal swelling, mass and lump
CPT/HCPCS: 85025; 80048; 36415; 81025; 80076; 81003; 83690; 76377; 74176; 76830; 96375; 96374; 99285; U0003; J1170; J2405